=== PATIENT | female | born 1985 | race African-American/Black ===

== ENCOUNTER 2016-07-16 10:28 | Emergency (ER) | payer SELFPAY ==
--- NOTE | 2016-07-16 10:41 | ER Document Report ---
ED Medical Screen (RME) - General Chief Complaint: Headache Stated Complaint: HEAD PAIN Mode of Arrival: Ambulatory Information source: Patient Notes: 30-year-old female presents to the emergency department complaining of headache , dizziness, generalized body aches, and intermittent fever over the last 4 days. I have greeted and performed a rapid initial assessment of this patient. A comprehensive ED assessment and evaluation of the patient, analysis of test results and completion of the medical decision making process will be conducted by additional ED providers. TRAVEL OUTSIDE OF THE [place] IN LAST 30 DAYS: No - Related Data Allergies/Adverse Reactions: No Known Allergies Allergy (Verified 04/03/16 15:18) Past Medical History - Social History Chew tobacco use (# tins/day): No Frequency of alcohol use: None Drug Abuse: None Pulmonary Medical History: Reports: Hx Asthma Renal/ Medical History: Denies: Hx Peritoneal Dialysis - Immunizations Immunizations up to date: Yes Hx Diphtheria, Pertussis, Tetanus Vaccination: Yes Physical Exam - Vital signs Vitals: Temp Pulse Resp BP Pulse Ox 98.9 F 117 H 16 116/91 H 99 07/16/16 10:33 07/16/16 10:33 07/16/16 10:33 07/16/16 10:33 07/16/16 10:33 Interpretation: Tachycardic - General General appearance: Alert In distress: None - Respiratory Respiratory status: No respiratory distress Breath sounds: Normal Course - Vital Signs Vital signs: Temp Pulse Resp BP Pulse Ox 98.9 F 117 H 16 116/91 H 99 07/16/16 10:33 07/16/16 10:33 07/16/16 10:33 07/16/16 10:33 07/16/16 10:33
[2016-07-16] MEDS ORDERED: NORMAL SALINE 1000 ML 1,000 ML IV ONE (12:37)
[2016-07-16] MEDS ORDERED: KETOROLAC TROMETHAMINE INJ/PF 30 MG/1 ML SDV IV ONE (12:38)
[2016-07-16] MEDS ORDERED: ONDANSETRON HCL INJ/PF 4 MG/2 ML SDV IV ONE (12:38)
--- NOTE | 2016-07-16 12:38 | ER Document Report ---
ED Flu Like - General Mode of Arrival: Ambulatory Information source: Patient TRAVEL OUTSIDE OF THE [place] IN LAST 30 DAYS: No - HPI Onset: Other - x4 days Timing/Duration: Persistent Quality of pain: Achy Severity: None - General Chief Complaint: Headache Stated Complaint: HEAD PAIN Notes: Patient is a 30-year-old female that presents to the emergency department today with complaints of flu-like symptoms including a fever, headache, and body aches with chest pain. Patient has a history of the sickle cell trait. Patient states all of her symptoms began 4 days ago. (ASHLIE SHOEMAKER) - Related Data Allergies/Adverse Reactions: No Known Allergies Allergy (Verified 04/03/16 15:18) Past Medical History - General Information source: Patient - Social History Smoking Status: Never Smoker Cigarette use (# per day): No Chew tobacco use (# tins/day): No Frequency of alcohol use: None Drug Abuse: None Lives with: Family Family History: Reviewed & Not Pertinent Patient has suicidal ideation: No Patient has homicidal ideation: No Pulmonary Medical History: Reports: Hx Asthma Surgical Hx: Negative - Immunizations Immunizations up to date: Yes Hx Diphtheria, Pertussis, Tetanus Vaccination: Yes Review of Systems - Review of Systems Constitutional: See HPI, Fever EENT: See HPI, Nose congestion Cardiovascular: No symptoms reported Respiratory: No symptoms reported Gastrointestinal: No symptoms reported Genitourinary: No symptoms reported Female Genitourinary: No symptoms reported Musculoskeletal: See HPI, Joint pain - generalized body aches Skin: No symptoms reported Hematologic/Lymphatic: No symptoms reported Neurological/Psychological: See HPI, Headaches -: Yes All other systems reviewed and negative Physical Exam - Vital signs Interpretation: Tachycardic - General General appearance: Alert, Other - appears uncomfortable - HEENT Head: Normocephalic, Atraumatic Eyes: Normal Conjunctiva: Normal Extraocular movements intact: Yes Nasal: Other - nasal congestion - Respiratory Respiratory status: No respiratory distress Chest status: Nontender Breath sounds: Normal - Cardiovascular Rhythm: Regular, Tachycardia Heart sounds: Normal auscultation Murmur: No - Abdominal Inspection: Normal Distension: No distension - Extremities General upper extremity: Normal inspection, Normal ROM. No: Edema General lower extremity: Normal inspection, Normal ROM. No: Edema - Neurological Neuro grossly intact: Yes Cognition: Normal Orientation: AAOx4 Speech: Normal - Psychological Associated symptoms: Normal affect, Normal mood - Skin Skin Temperature: Warm Skin Moisture: Dry Skin Color: Normal Course - Re-evaluation Re-evalutation: 07/16/16 18:38 Patient with upper respiratory symptoms and headache. She has not been staying hydrated that she has not felt well for the last few days. Positive for influenza A. No evidence for pneumonia. AVSS. Patient has been given fluids, Toradol, and Zofran for headache. Feels better. Stable for discharge home. Follow-up with PMD. Return if any worsening or concerning symptoms. (MARK CLAIRE) - Vital Signs Vital signs: Temp Pulse Resp BP Pulse Ox 97.8 F 100 16 121/76 100 07/16/16 14:36 07/16/16 14:36 07/16/16 10:33 07/16/16 14:36 07/16/16 14:36 (ASHLIE SHOEMAKER) (MARK CLAIRE) Discharge - Discharge Clinical Impression: Influenza A Headache Qualifiers: Headache type: tension-type Headache chronicity pattern: unspecified pattern Intractability: not intractable Qualified Code(s): G44.209 - Tension-type headache, unspecified, not intractable Condition: Stable Disposition: HOME, SELF-CARE Instructions: Influenza ([facility]), Headache ([facility]) Additional Instructions: Please follow-up with your doctor within 3-5 days. Forms: Return to Work Scribe Attestation: 07/16/16 18:38 I personally performed the services described in the documentation, reviewed and edited the documentation which was dictated to the scribe in my presence, and it accurately records my words and actions. (MARK CLAIRE) Scribe Documentation - Scribe Written by Brii:: Brii Garcia, [id number] 07/16/16 acting as scribe for :: Jeanna
[2016-07-16 14:40] VITALS: BP 121/76
== END 2016-07-16 14:40 | disposition home or self-care (01) ==
LOC: ER 10:28
DX: G44.209 Tension-type headache, unspecified, not intractable (principal); J11.1 Influenza due to unidentified influenza virus with other respiratory manifestations; R50.9 Fever, unspecified; R07.9 Chest pain, unspecified; R09.81 Nasal congestion; R00.0 Tachycardia, unspecified; M25.50 Pain in unspecified joint; D57.3 Sickle-cell trait
CPT/HCPCS: 99283; 96361; 96374; 96375; 87804; J1885; J2405; J7030

== ENCOUNTER 2016-10-11 17:00 | Emergency (ER) | payer SELFPAY ==
--- NOTE | 2016-10-11 19:05 | ER Document Report ---
ED Medical Screen (RME) - General Chief Complaint: Abscess Stated Complaint: POSSIBLE ABCESS Time Seen by Provider: 10/11/16 19:02 Notes: Patient is a 30-year-old female, past medical history asthma, sickle cell trait , presents with several days of swelling on the left side of her labia. She has never had this before. PE: NAD. RRR. ATKINS. I have greeted and performed a rapid initial assessment of this patient. A comprehensive ED assessment and evaluation of the patient, analysis of test results and completion of the medical decision making process will be conducted by additional ED providers. TRAVEL OUTSIDE OF THE [place] IN LAST 30 DAYS: No - Related Data Allergies/Adverse Reactions: No Known Allergies Allergy (Verified 10/11/16 17:52) Past Medical History Pulmonary Medical History: Reports: Hx Asthma Renal/ Medical History: Denies: Hx Peritoneal Dialysis - Immunizations Immunizations up to date: Yes Hx Diphtheria, Pertussis, Tetanus Vaccination: Yes Physical Exam - Vital signs Vitals: Temp Pulse Resp BP Pulse Ox 97.8 F 83 16 146/54 H 100 10/11/16 17:52 10/11/16 17:52 10/11/16 17:52 10/11/16 17:52 10/11/16 17:52 Course - Vital Signs Vital signs: Temp Pulse Resp BP Pulse Ox 97.8 F 83 16 146/54 H 100 10/11/16 17:52 10/11/16 17:52 10/11/16 17:52 10/11/16 17:52 10/11/16 17:52
[2016-10-11] MEDS ORDERED: SULFAMETHOXAZOLE/TRIMETHOPRIM 800-160 MG TABLET PO ONE (19:35)
[2016-10-11] MEDS ORDERED: HYDROCODONE/ACETAMINOPHEN 5-325 MG 6 TAB/DSPK PO PRN (19:35)
--- NOTE | 2016-10-11 19:43 | ER Document Report ---
ED Skin Rash/Insect Bite/Abscs - General Chief Complaint: Abscess Stated Complaint: POSSIBLE ABCESS Time Seen by Provider: 10/11/16 19:02 Mode of Arrival: Ambulatory Information source: Patient TRAVEL OUTSIDE OF THE [place] IN LAST 30 DAYS: No - HPI Patient complains to provider of: Tender/swollen area Onset: Last week Onset/Duration: Gradual, Persistent Quality of pain: Achy, Pressure Severity: Moderate Pain Level: 3 Skin Character: Tenderness Quality of rash: Painful Identify cause: No Similar symptoms previously: No Recently seen / treated by doctor: No Notes: Patient is a 30-year-old female who presents to the emergency room complaining of tender swelling to left labia, she reports that she felt a lump in this area for at least the past 2-3 years, and only over the past week it has become tender and painful, she denies any injury, no drainage, no fevers, no nausea, vomiting or diarrhea, no dysuria or hematuria - Related Data Allergies/Adverse Reactions: No Known Allergies Allergy (Verified 10/11/16 17:52) Past Medical History - General Information source: Patient - Social History Smoking Status: Never Smoker Family History: Reviewed & Not Pertinent Patient has suicidal ideation: No Patient has homicidal ideation: No Pulmonary Medical History: Reports: Hx Asthma Renal/ Medical History: Denies: Hx Peritoneal Dialysis - Immunizations Immunizations up to date: Yes Hx Diphtheria, Pertussis, Tetanus Vaccination: Yes Review of Systems - Review of Systems Constitutional: No symptoms reported EENT: No symptoms reported Cardiovascular: No symptoms reported Respiratory: No symptoms reported Gastrointestinal: No symptoms reported Genitourinary: No symptoms reported Female Genitourinary: See HPI Musculoskeletal: No symptoms reported Skin: No symptoms reported Hematologic/Lymphatic: No symptoms reported Neurological/Psychological: No symptoms reported -: Yes All other systems reviewed and negative Physical Exam - Vital signs Vitals: Temp Pulse Resp BP Pulse Ox 97.8 F 83 16 146/54 H 100 10/11/16 17:52 10/11/16 17:52 10/11/16 17:52 10/11/16 17:52 10/11/16 17:52 - Notes Notes: - General General appearance: Appears well, Alert In distress: None - HEENT Head: Normocephalic, Atraumatic Eyes: Normal Conjunctiva: Normal Extraocular movements intact: Yes Eyelashes: Normal Pupils: PERRL - Respiratory Respiratory status: No respiratory distress - Cardiovascular Rhythm: Regular - Abdominal Inspection: Normal - Back Back: Normal - Extremities General upper extremity: Normal inspection General lower extremity: Normal inspection - Neurological Neuro grossly intact: Yes Orientation: AAOx4 [place] Coma Scale Eye Opening: Spontaneous [place] Coma Scale Verbal: Oriented [place] Coma Scale Motor: Obeys Commands Gerson Coma Scale Total: 15 - Psychological Associated symptoms: Normal affect, Normal mood - Skin Skin Temperature: Warm Skin Moisture: Dry Skin Color: Normal - Genitourinary External exam: Normal, Other - There is a pea-sized nodule in the left labia which is tender to palpate, there is no erythema, no fluctuance, no swelling Course - Re-evaluation Re-evalutation: 10/11/16 20:22 30-year-old female with a pea-sized nodule in the left labia, likely swollen glands, there is no fluctuance, no erythema, no swelling to the labia, however patient was placed on antibiotics and provided with pain medication for treatment of the possible early Bartholin abscess, patient was provided with information for follow-up and advised to return if symptoms worsen, patient acknowledges understanding and agreement with this plan - Vital Signs Vital signs: Temp Pulse Resp BP Pulse Ox 98.4 F 79 18 134/81 H 97 10/11/16 19:48 10/11/16 19:48 10/11/16 19:48 10/11/16 19:48 10/11/16 19:48 Discharge - Discharge Clinical Impression: Folliculitis Condition: Stable Disposition: HOME, SELF-CARE Instructions: Folliculitis ([facility]), Trimethoprim-Sulfa ([facility]), Oral Narcotic Medication ([facility]), [employer] [facility] Additional Instructions: Follow up with your primary care provider [employer] in one to 2 days. Return to the emergency room immediately if symptoms worsen or any additional concerns. Prescriptions: Hydrocodone/Acetaminophen [Hydrocodon-Acetaminophen 5-325] 1 each PO Q6 #20 tablet Sulfamethoxazole/Trimethoprim [Bactrim Ds Tablet] 1 each PO BID #20 tablet
[2016-10-11 19:50] VITALS: BP 134/81
== END 2016-10-11 20:00 | disposition home or self-care (01) ==
LOC: ER 17:00
DX: L73.9 Follicular disorder, unspecified (principal); N76.4 Abscess of vulva
CPT/HCPCS: 99282

== ENCOUNTER 2017-04-19 17:17 | Emergency (ER) | payer SELFPAY ==
[2017-04-19] MEDS ORDERED: IBUPROFEN 800 MG TABLET PO ONE (18:56)
--- NOTE | 2017-04-19 19:44 | RADIOLOGY REPORT (SQ) ---
EXAM DESCRIPTION: KNEE LEFT 4 VIEW COMPLETED DATE/TIME: 04/19/2017 7:32 pm REASON FOR STUDY: pain for a week COMPARISON: None. NUMBER OF VIEWS: Four views. TECHNIQUE: AP, lateral, and both oblique radiographic images acquired of the left knee. LIMITATIONS: None. FINDINGS: MINERALIZATION: Normal. BONES: No acute fracture or dislocation. No worrisome bone lesions. JOINT: No effusion. SOFT TISSUES: No soft tissue swelling. No radio-opaque foreign body. OTHER: No other significant finding. IMPRESSION: NEGATIVE STUDY OF THE LEFT KNEE. NO RADIOGRAPHIC EVIDENCE OF ACUTE INJURY. TECHNICAL DOCUMENTATION: JOB ID: [id number] [employer]- All Rights Reserved
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
[2017-04-19 21:08] VITALS: BP 117/73
== END 2017-04-19 21:08 | disposition home or self-care (01) ==
LOC: ER 17:17
DX: M25.562 Pain in left knee (principal); Z79.899 Other long term (current) drug therapy
CPT/HCPCS: 99283

== ENCOUNTER 2017-05-03 08:12 | Emergency (ER) | payer SELFPAY ==
[2017-05-03] MEDS ORDERED: NORMAL SALINE 1000 ML 1,000 ML IV ONE (08:32)
[2017-05-03] MEDS ORDERED: HYDROMORPHONE HCL INJ/PF 2 MG/ML AMPULE IV ONE (08:33)
--- NOTE | 2017-05-03 08:49 | ER Document Report ---
ED General Pain - General Chief Complaint: Pain All Over Stated Complaint: BACK AND LEG PAIN Time Seen by Provider: 05/03/17 08:19 Mode of Arrival: Wheelchair Information source: Patient Notes: Patient presents complaining of generalized joint and muscle pain for the past week. Patient denies any cough, cold symptoms, nausea or vomiting. Patient denies any fever. Patient states she does have sickle cell trait and at least once a year she will have body pain symptoms similar to this. Patient denies any abdominal pain or chest pain. TRAVEL OUTSIDE OF THE [place] IN LAST 30 DAYS: No - HPI Onset: Last week Onset/Duration: Persistent Quality of pain: Achy Pain Level: 5 Associated symptoms: Muscle aches Exacerbated by: Movement Relieved by: Denies Similar symptoms previously: Yes Recently seen / treated by doctor: Yes - Related Data Allergies/Adverse Reactions: No Known Allergies Allergy (Verified 05/03/17 08:13) Past Medical History - General Information source: Patient - Social History Smoking Status: Never Smoker Frequency of alcohol use: None Drug Abuse: None Occupation: None Lives with: Family Family History: Reviewed & Not Pertinent Patient has suicidal ideation: No Patient has homicidal ideation: No - Medical History Medical History: Other - Sickle cell trait Pulmonary Medical History: Reports: Hx Asthma Renal/ Medical History: Denies: Hx Peritoneal Dialysis Surgical Hx: Negative - Immunizations Immunizations up to date: Yes Hx Diphtheria, Pertussis, Tetanus Vaccination: Yes Review of Systems - Review of Systems Constitutional: No symptoms reported. denies: Fever, Recent illness EENT: No symptoms reported Cardiovascular: No symptoms reported. denies: Chest pain Respiratory: No symptoms reported. denies: Cough, Short of breath Gastrointestinal: No symptoms reported. denies: Abdominal pain, Diarrhea, Nausea, Vomiting Genitourinary: No symptoms reported. denies: Dysuria Female Genitourinary: No symptoms reported Musculoskeletal: Back pain, Joint pain, Muscle pain. denies: Joint swelling Skin: No symptoms reported Hematologic/Lymphatic: No symptoms reported Neurological/Psychological: No symptoms reported. denies: Headaches Physical Exam - Vital signs Vitals: Temp Pulse Resp BP Pulse Ox 98.9 F 92 20 130/71 H 97 05/03/17 08:20 05/03/17 08:20 05/03/17 08:20 05/03/17 08:20 05/03/17 08:20 - General General appearance: Alert In distress: None Notes: tearful - HEENT Head: Normocephalic Eyes: Normal Nasal: Normal Mouth/Lips: Normal Mucous membranes: Normal Pharynx: Normal Neck: Normal, Supple. No: Lymphadenopathy, Meningismus - Respiratory Respiratory status: No respiratory distress Chest status: Nontender Breath sounds: Normal. No: Rales, Rhonchi, Stridor, Wheezing Chest palpation: Normal - Cardiovascular Rhythm: Regular Heart sounds: S1 appreciated, S2 appreciated Murmur: No - Abdominal Inspection: Normal Distension: No distension Bowel sounds: Normal Tenderness: Nontender Organomegaly: No organomegaly - Back Back: Tender - Lumbar paraspinal tenderness, CVA tenderness - bilat - Extremities General upper extremity: Normal inspection, Tender - Diffuse tenderness to joints as well as muscles of bilateral upper extremities, Normal color, Normal ROM, Normal strength, Normal temperature. No: Edema General lower extremity: Normal inspection, Tender - Diffuse tenderness to bilateral lower extremity muscle and joints, Normal color, Normal ROM, Normal strength, Normal temperature, Normal weight bearing. No: Edema - Neurological Neuro grossly intact: Yes Cognition: Normal [place] Coma Scale Eye Opening: Spontaneous [place] Coma Scale Verbal: Oriented [place] Coma Scale Motor: Obeys Commands [place] Coma Scale Total: 15 - Psychological Associated symptoms: Tearful - Skin Skin Temperature: Warm Skin Moisture: Dry Skin Color: Normal Course - Re-evaluation Re-evalutation: 05/03/17 09:40 pt reports that pain has improved. Pt visibly more comfortable. 05/03/17 11:34 Patient reports that pain is better and feels that she can manage her symptoms at home. Consulted with Dr. Morrison regarding patient presentation, reviewed her diagnostic tests. Agrees with discharge plan - Vital Signs Vital signs: Temp Pulse Resp BP Pulse Ox 98.9 F 92 20 137/95 H 97 05/03/17 08:20 05/03/17 08:20 05/03/17 08:20 05/03/17 11:36 05/03/17 09:52 - Laboratory Result Diagrams: 05/03/17 08:55 05/03/17 08:55 Laboratory results interpreted by me: 05/03/17 05/03/17 05/03/17 08:55 08:55 10:10 WBC 11.3 H Chloride 109 H Carbon Dioxide 21 L Direct Bilirubin 0.5 H Creatine Kinase 211 H Ur Leukocyte Esterase TRACE H Urine Ascorbic Acid 20 H Labs- Entire Visit 05/03/17 05/03/17 05/03/17 08:55 08:55 08:55 WBC 11.3 H RBC 4.62 Hgb 13.4 Hct 38.4 MCV 83 MCH 29.0 MCHC 34.9 RDW 13.6 Plt Count 282 Seg Neutrophils % 65.2 Lymphocytes % 23.5 Monocytes % 10.6 Eosinophils % 0.4 Basophils % 0.3 Absolute Neutrophils 7.4 Absolute Lymphocytes 2.7 Absolute Monocytes 1.2 Absolute Eosinophils 0.0 Absolute Basophils 0.0 Retic Count (auto) 1.74 Absolute Retic 0.081 Sodium 143.0 Potassium 4.2 Chloride 109 H Carbon Dioxide 21 L Anion Gap 13 BUN 8 Creatinine 0.67 Est GFR ( Amer) > 60 Est GFR (Non-Af Amer) > 60 Glucose 90 Calcium 9.2 Total Bilirubin 1.0 Direct Bilirubin 0.5 H Neonat Total Bilirubin Not Reportable Neonat Direct Bilirubin Not Reportable Neonat Indirect Bili Not Reportable AST 33 ALT 30 Alkaline Phosphatase 53 Creatine Kinase 211 H Total Protein 7.2 Albumin 4.1 Serum HCG, Qual NEGATIVE Urine Color Urine Appearance Urine pH Ur Specific [place] Urine Protein Urine Glucose (UA) Urine Ketones Urine Blood Urine Nitrite Urine Bilirubin Urine Urobilinogen Ur Leukocyte Esterase Urine WBC (Auto) Urine RBC (Auto) Squamous Epi Cells Auto Urine Mucus (Auto) Urine Ascorbic Acid 05/03/17 10:10 WBC RBC Hgb Hct MCV MCH MCHC RDW Plt Count Seg Neutrophils % Lymphocytes % Monocytes % Eosinophils % Basophils % Absolute Neutrophils Absolute Lymphocytes Absolute Monocytes Absolute Eosinophils Absolute Basophils Retic Count (auto) Absolute Retic Sodium Potassium Chloride Carbon Dioxide Anion Gap BUN Creatinine Est GFR ( Amer) Est GFR (Non-Af Amer) Glucose Calcium Total Bilirubin Direct Bilirubin Neonat Total Bilirubin Neonat Direct Bilirubin Neonat Indirect Bili AST ALT Alkaline Phosphatase Creatine Kinase Total Protein Albumin Serum HCG, Qual Urine Color YELLOW Urine Appearance SLIGHTLY-CLOUDY Urine pH 5.0 Ur Specific [place] 1.011 Urine Protein NEGATIVE Urine Glucose (UA) NEGATIVE Urine Ketones NEGATIVE Urine Blood NEGATIVE Urine Nitrite NEGATIVE Urine Bilirubin NEGATIVE Urine Urobilinogen NEGATIVE Ur Leukocyte Esterase TRACE H Urine WBC (Auto) 2 Urine RBC (Auto) 2 Squamous Epi Cells Auto 7 Urine Mucus (Auto) MANY Urine Ascorbic Acid 20 H Discharge - Discharge Clinical Impression: Myalgia Arthralgia Qualifiers: Joint pain location: unspecified Qualified Code(s): M25.50 - Pain in unspecified joint Condition: Stable Disposition: HOME, SELF-CARE Instructions: Arthralgia ([facility]), Myalagia (Muscle Pain) ([facility]), Oral Narcotic Medication ([facility]) Additional Instructions: Return immediately for any new or worsening symptoms Followup with your primary care provider, call tomorrow to make a followup appointment Prescriptions: Hydrocodone/Acetaminophen [Gould 5-325 Tablet] 1 each PO Q4 PRN #8 tablet PRN Reason: Naproxen [Naprosyn 250 Nmg Tablet] 1 tab PO BID #14 tablet Referrals: [facility] [Provider Group] - Follow up tomorrow
[2017-05-03 09:18] LABS: ABSOLUTE LYMPHOCYTES (AUTO) 2.7 10^3/uL (0.5-4.7); ABSOLUTE MONOCYTES (AUTO) 1.2 10^3/uL (0.1-1.4); ABSOLUTE NEUT (AUTO) 7.4 10^3/uL (1.7-8.2); BASOPHILS % (AUTO) 0.3 % (0-2); EOSINOPHILS % (AUTO) 0.4 % (0-6); HEMATOCRIT 38.4 % (36.0-47.0); HEMOGLOBIN 13.4 g/dL (12.0-15.5); HGB HCT DIFFERENCE 1.8; LYMPHOCYTES % (AUTO) 23.5 % (13-45); MEAN CORPUSCULAR HGB CONC 34.9 g/dL (32.0-36.0); MEAN CORPUSCULAR VOLUME 83 fl (80-97); MONOCYTES % (AUTO) 10.6 % (3-13); RED BLOOD COUNT 4.62 10^6/uL (3.72-5.28); RED CELL DISTRIBUTION WIDTH 13.6 % (11.5-14.0); SEGMENTED NEUTROPHILS % (AUTO) 65.2 % (42-78); WHITE BLOOD COUNT 11.3 10^3/uL (4.0-10.5)
[2017-05-03 09:42] LABS: STAIN REACTIVITY CHECK ACCEPTABLE
[2017-05-03] MEDS ORDERED: NORMAL SALINE 1000 ML 1,000 ML IV PRN (09:43)
[2017-05-03 09:46] LABS: ALANINE AMINOTRANSFERASE 30 U/L (9-52); ALBUMIN 4.1 g/dL (3.5-5.0); ALKALINE PHOSPHATASE 53 U/L (38-126); ANION GAP 13 (5-19); ASPARTATE AMINO TRANSFERASE 33 U/L (14-36); BILIRUBIN,DIRECT 0.5 mg/dL (0.0-0.4); BLOOD UREA NITROGEN 8 mg/dL (7-20); CALCIUM 9.2 mg/dL (8.4-10.2); CARBON DIOXIDE 21 mmol/L (22-30); CHLORIDE 109 mmol/L (98-107); CREATINE KINASE 211 U/L (30-135); CREATININE RESULT 0.67 mg/dL (0.52-1.25); GLUCOSE 90 mg/dL (75-110); POTASSIUM 4.2 mmol/L (3.6-5.0); TOTAL PROTEIN 7.2 g/dL (6.3-8.2)
[2017-05-03 10:53] LABS: APPEARANCE,URINE SLIGHTLY-CLOUDY; BILIRUBIN,URINE NEGATIVE (NEGATIVE); GLUCOSE, URINE NEGATIVE (NEGATIVE); KETONES,URINE NEGATIVE (NEGATIVE); LEUKOCYTE ESTERASE,URINE TRACE (NEGATIVE); NITRITE,URINE NEGATIVE (NEGATIVE); PROTEIN,URINE NEGATIVE (NEGATIVE); URINE SPECIFIC GRAVITY 1.011; UROBILINOGEN,URINE NEGATIVE mg/dL (<2.0)
[2017-05-03 11:39] VITALS: BP 137/95
== END 2017-05-03 12:00 | disposition home or self-care (01) ==
LOC: ER 08:12
DX: M79.1 Myalgia (principal); M25.50 Pain in unspecified joint; M54.9 Dorsalgia, unspecified; D57.3 Sickle-cell trait
CPT/HCPCS: 99283; 96361; 96374; 36415; 82550; 84703; 85025; 85045; 80053; 81001; J1170; J7030

== ENCOUNTER 2017-05-09 10:30 | Emergency (ER) | payer SELFPAY ==
[2017-05-09] MEDS ORDERED: NORMAL SALINE 1000 ML 1,000 ML IV PRN (11:14)
[2017-05-09] MEDS ORDERED: MORPHINE SULFATE 10 MG/ML INJ IV ONE (11:15)
[2017-05-09] MEDS ORDERED: ONDANSETRON HCL INJ/PF 4 MG/2 ML SDV IV ONE (11:16)
[2017-05-09 12:06] LABS: ABSOLUTE BASOPHILS # (AUTO) 0.1 10^3/uL (0.0-0.2); ABSOLUTE EOSINOPHILS # (AUTO) 0.1 10^3/uL (0.0-0.6); ABSOLUTE LYMPHOCYTES (AUTO) 2.2 10^3/uL (0.5-4.7); ABSOLUTE MONOCYTES (AUTO) 0.9 10^3/uL (0.1-1.4); ABSOLUTE NEUT (AUTO) 3.6 10^3/uL (1.7-8.2); BASOPHILS % (AUTO) 0.8 % (0-2); EOSINOPHILS % (AUTO) 1.5 % (0-6); HEMATOCRIT 39.1 % (36.0-47.0); HEMOGLOBIN 13.6 g/dL (12.0-15.5); HGB HCT DIFFERENCE 1.7; LYMPHOCYTES % (AUTO) 32.6 % (13-45); MEAN CORPUSCULAR HEMOGLOBIN 29.3 pg (27.0-33.4); MEAN CORPUSCULAR HGB CONC 34.8 g/dL (32.0-36.0); MEAN CORPUSCULAR VOLUME 84 fl (80-97); MONOCYTES % (AUTO) 12.9 % (3-13); RED BLOOD COUNT 4.65 10^6/uL (3.72-5.28); RED CELL DISTRIBUTION WIDTH 13.5 % (11.5-14.0); SEGMENTED NEUTROPHILS % (AUTO) 52.2 % (42-78); WHITE BLOOD COUNT 6.9 10^3/uL (4.0-10.5)
[2017-05-09 12:28] LABS: ALANINE AMINOTRANSFERASE 31 U/L (9-52); ALBUMIN 3.8 g/dL (3.5-5.0); ALKALINE PHOSPHATASE 43 U/L (38-126); ANION GAP 9 (5-19); ASPARTATE AMINO TRANSFERASE 23 U/L (14-36); BILIRUBIN,DIRECT 0.2 mg/dL (0.0-0.4); BILIRUBIN,TOTAL 0.8 mg/dL (0.2-1.3); BLOOD UREA NITROGEN 8 mg/dL (7-20); C-REACTIVE PROTEIN 12.1 mg/L (<10.0); CALCIUM 9.3 mg/dL (8.4-10.2); CARBON DIOXIDE 27 mmol/L (22-30); CHLORIDE 105 mmol/L (98-107); CREATININE RESULT 0.68 mg/dL (0.52-1.25); GLUCOSE 98 mg/dL (75-110); POTASSIUM 3.6 mmol/L (3.6-5.0); SODIUM 140.8 mmol/L (137-145); TOTAL PROTEIN 6.7 g/dL (6.3-8.2); URIC ACID 4.9 mg/dL (2.5-6.2)
--- NOTE | 2017-05-09 12:37 | RADIOLOGY REPORT (SQ) ---
EXAM DESCRIPTION: CHEST SINGLE VIEW COMPLETED DATE/TIME: 05/09/2017 12:17 pm REASON FOR STUDY: chest pain COMPARISON: Chest films 04/08/2016 EXAM PARAMETERS: NUMBER OF VIEWS: One view. TECHNIQUE: Single frontal radiographic view of the chest acquired. RADIATION DOSE: NA LIMITATIONS: None. FINDINGS: LUNGS AND PLEURA: No opacities, masses or pneumothorax. No pleural effusion. MEDIASTINUM AND HILAR STRUCTURES: No masses. Contour normal. HEART AND VASCULAR STRUCTURES: Heart normal in size. Normal vasculature. BONES: No acute findings. HARDWARE: None in the chest. OTHER: No other significant finding. IMPRESSION: NO ACUTE RADIOGRAPHIC FINDING IN THE CHEST. TECHNICAL DOCUMENTATION: JOB ID: [id number] [employer]- All Rights Reserved
--- NOTE | 2017-05-09 12:38 | RADIOLOGY REPORT (SQ) ---
EXAM DESCRIPTION: KNEE LEFT 4 VIEW COMPLETED DATE/TIME: 05/09/2017 12:17 pm REASON FOR STUDY: left knee pain COMPARISON: Left knee four views 04/19/2017 NUMBER OF VIEWS: Four views. TECHNIQUE: AP, lateral, and both oblique radiographic images acquired of the left knee. LIMITATIONS: None. FINDINGS: MINERALIZATION: Normal. BONES: No acute fracture or dislocation. No worrisome bone lesions. JOINT: No effusion. SOFT TISSUES: No soft tissue swelling. No radio-opaque foreign body. OTHER: No other significant finding. IMPRESSION: NEGATIVE STUDY OF THE LEFT KNEE. NO RADIOGRAPHIC EVIDENCE OF ACUTE INJURY. TECHNICAL DOCUMENTATION: JOB ID: [id number] [employer]- All Rights Reserved
[2017-05-09 12:46] LABS: ERYTHROCYTE SEDIMENTATION RATE 12 mm/hr (0-20)
--- NOTE | 2017-05-09 13:34 | RADIOLOGY REPORT (SQ) ---
EXAM DESCRIPTION: MRI LT LOWER JOINT WITHOUT COMPLETED DATE/TIME: 05/09/2017 1:22 pm REASON FOR STUDY: left knee pain COMPARISON: Plain films 05/09/2017, 04/19/2017 TECHNIQUE: Leftknee images acquired and stored on PACS. Multiplanar images include fat sensitive se quences as T1, water sensitive sequences as FST2 or STIR, cartilage sensitive sequences as FSPD, and gradient echo sequences. LIMITATIONS: None. FINDINGS: JOINT AND BURSAE: No effusion. BONE CORTEX AND MARROW: No alteration of signal to suggest marrow replacement. No worrisome bone lesi ons. No occult fracture. ACL: Intact. No degeneration or ganglion cyst. PCL: Intact. MCL: Intact. No periligamentous edema or fluid. LCL: Intact. No periligamentous edema or fluid. MEDIAL MENISCUS: No tears. No abnormal signal. LATERAL MENISCUS: No tears. No abnormal signal. MEDIAL COMPARTMENT: Mild chondromalacia. No bone bruises or reactive marrow edema. No osteophytes. LATERAL COMPARTMENT: Cartilage preserved. No bone bruises or reactive marrow edema. No osteophytes. PATELLA: Mild medial patellar facet chondromalacia. No subchondral cysts. Medial and lateral retinacu la intact. EXTENSOR MECHANISM: Intact. Quadriceps and patella tendons normal. SOFT TISSUES: Adjacent muscles and subcutaneous tissues normal. Normal flow void in popliteal artery and vein. OTHER: No other significant finding. 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 OTHERWISE, NORMAL MRI OF THE KNEE. TECHNICAL DOCUMENTATION: JOB ID: [id number] [email or web address]- All Rights Reserved
[2017-05-09] MEDS ORDERED: METHYLPREDNISOLONE INJ 125 MG/2 ML SDV IV ONE (14:52)
[2017-05-09 14:59] LABS: APPEARANCE,URINE CLEAR; BILIRUBIN,URINE NEGATIVE (NEGATIVE); GLUCOSE, URINE NEGATIVE (NEGATIVE); KETONES,URINE NEGATIVE (NEGATIVE); LEUKOCYTE ESTERASE,URINE NEGATIVE (NEGATIVE); NITRITE,URINE NEGATIVE (NEGATIVE); PROTEIN,URINE NEGATIVE (NEGATIVE); URINE SPECIFIC GRAVITY 1.005; UROBILINOGEN,URINE NEGATIVE mg/dL (<2.0)
--- NOTE | 2017-05-09 16:33 | ER Document Report ---
ED General - General Chief Complaint: Feet Swelling Stated Complaint: KNEE PAIN Time Seen by Provider: 05/09/17 10:56 Mode of Arrival: Ambulatory Information source: Patient Notes: This is a 31-year-old female with a history of sickle cell trait that presents to the emergency room with recurrent left knee pain for the past week. Patient does report she has had intermittent joint pain of both knees and the toes but that the left knee is been worse for the past week. She states it is hard to move and bend the knee. She denies fever but states she has had some chills. TRAVEL OUTSIDE OF THE [place] IN LAST 30 DAYS: No - HPI Onset: Last week Onset/Duration: Gradual Quality of pain: Dull Severity: Moderate Pain Level: 3 Associated symptoms: Chills. denies: Fever, Shortness of breath Exacerbated by: Movement Relieved by: Denies Similar symptoms previously: Yes Recently seen / treated by doctor: Yes - Related Data Allergies/Adverse Reactions: No Known Allergies Allergy (Verified 05/09/17 10:31) Home Medications: Current Home Medications Hydrocodone/Acetaminophen [Lane 5-325 Tablet] 1 each PO Q4HP PRN 05/09/17 [ History] Naproxen [Naprosyn 250 Nmg Tablet] 250 mg PO Q12 05/09/17 [History] Past Medical History - General Information source: Patient - Social History Smoking Status: Never Smoker Cigarette use (# per day): No Chew tobacco use (# tins/day): No Frequency of alcohol use: None Drug Abuse: None Lives with: Family Family History: Reviewed & Not Pertinent Patient has suicidal ideation: No Patient has homicidal ideation: No - Past Medical History Cardiac Medical History: Reports: None Pulmonary Medical History: Reports: Hx Asthma Neurological Medical History: Reports: None Endocrine Medical History: Reports: None Renal/ Medical History: Denies: Hx Peritoneal Dialysis Malignancy Medical History: Reports: None GI Medical History: Reports: None Musculoskeltal Medical History: Reports Hx Arthritis, Reports Other - The patient does have a history of arthralgias to the knees and toes Skin Medical History: Reports None Psychiatric Medical History: Reports: None Traumatic Medical History: Reports: None Infectious Medical History: Reports: None Surgical Hx: Negative - Immunizations Immunizations up to date: Yes Hx Diphtheria, Pertussis, Tetanus Vaccination: Yes Review of Systems - Review of Systems Constitutional: Chills. denies: Fever EENT: No symptoms reported Cardiovascular: No symptoms reported Respiratory: No symptoms reported Gastrointestinal: No symptoms reported Genitourinary: No symptoms reported Female Genitourinary: No symptoms reported Musculoskeletal: See HPI Skin: See HPI Hematologic/Lymphatic: No symptoms reported Neurological/Psychological: No symptoms reported Physical Exam - Vital signs Vitals: Temp Pulse Resp BP Pulse Ox 98.1 F 88 22 H 127/77 H 99 05/09/17 10:36 05/09/17 10:36 05/09/17 10:36 05/09/17 10:36 05/09/17 10:36 Notes: Physical exam: GENERAL: 31-year-old female, alert and oriented 3, complaining of left knee pain. She is afebrile with stable vital signs. HEAD: Atraumatic, normocephalic. EYES: Pupils equal round and reactive to light, extraocular movements intact, sclera anicteric, conjunctiva are normal. ENT: TMs normal, nares patent, oropharynx clear without exudates. Moist mucous membranes. NECK: Normal range of motion, supple without obvious mass or JVD. LUNGS: Breath sounds clear to auscultation bilaterally and equal. No wheezes rales or rhonchi. HEART: Regular rate and rhythm without murmurs, rubs or gallops. ABDOMEN: Soft, normoactive bowel sounds. No tenderness to palpation. No guarding, no rebound. No masses appreciated. EXTREMITIES: Patient has limited range of motion of the left knee. On visual inspection, there is no erythema or obvious swelling. There is no warmth to the left knee. There is significant pain with range of motion. Her distal pulses are good. Her sensation is good distally. There is no calf tenderness or swelling NEUROLOGICAL: Cranial nerves II through XII grossly intact. Normal speech, moving all extremities. PSYCH: Normal mood, normal affect. SKIN: She does have a patricio rash on her cheeks. Bedside ultrasound: I cannot detect any fluid around the joint. Course - Re-evaluation Re-evalutation: 05/09/17 16:31 It is possible that the patient has some sort of rheumatologic issue. I do not think she has got an infected joint and there is no fluid to tap at this time. She has no fever or elevated white count. She does have a rash on her face concerning for rosacea or possibly a lupus rash. I discussed this issue with Dr. Brock (the hospitalist) and she recommended following up in the community care clinic and that there was no real indication for admission. I did start the patient on steroids and I will give her the number for the community care clinic. Additionally, she will be going to the health department to try and set up some health insurance. - Vital Signs Vital signs: Temp Pulse Resp BP Pulse Ox 98.4 F 73 16 128/72 H 96 05/09/17 16:59 05/09/17 16:59 05/09/17 16:59 05/09/17 16:59 05/09/17 16:59 - Laboratory Result Diagrams: 05/09/17 11:40 05/09/17 11:40 Laboratory results interpreted by me: 05/09/17 11:40 C-Reactive Protein 12.1 H - Diagnostic Test Radiology reviewed: Image reviewed, Reports reviewed - MRI of the knee shows no obvious infection fluid. Discharge - Discharge Clinical Impression: Left knee pain Condition: Stable Disposition: HOME, SELF-CARE Additional Instructions: Thank you for choosing [facility] for your care. The examination and treatment you have received in the Emergency Department today has been rendered on an emergency basis only and is not intended to be a substitute for complete medical care. You should contact your follow-up physician as it is important that he or she examine you for any new or remaining problems. If given a copy of any lab tests or radiology reports, please bring them with you when you see your physician. If your problem worsens or new symptoms appear and you are unable to arrange prompt follow-up care, return to the Emergency Department. Specific signs to look out for: Fever (temperature greater than 100.5), increasing pain, redness or swelling of the joint. Any other instructions: Take the Medrol Dosepak as prescribed. Continue the pain medicine you already have. Follow-up in the community care clinic: I left a number on the chart. Prescriptions: Methylprednisolone [Medrol 4 mg Dosepack 21 Tab/Pack] 4 mg PO ASDIR PRN #21 [id number] PRN Reason: Referrals: [facility] [NO LOCAL MD] - Follow up as needed (This is the number the free clinic)
[2017-05-09 17:01] VITALS: BP 128/72
== END 2017-05-09 16:59 | disposition home or self-care (01) ==
LOC: ER 10:30
DX: M25.562 Pain in left knee (principal); M25.561 Pain in right knee; M79.89 Other specified soft tissue disorders; Z79.899 Other long term (current) drug therapy; D57.3 Sickle-cell trait
CPT/HCPCS: 99284; 96361; 96374; 96375; 36415; 84550; 85025; 85652; 86140; 80053; 81001; 73721; 71010; 73562; J2930; J2270; J2405; J7030

== ENCOUNTER 2017-06-12 04:03 | Emergency (ER) | payer SELFPAY ==
--- NOTE | 2017-06-12 04:54 | ER Document Report ---
HPI - HPI Patient complains to provider of: sore throat, left knee pain Pain Level: 5 Context: Patient is a 31 year old female that comes to the ED for chief complaint of sore throat, sneezing, congestion, pain along the front of her neck since yesterday. She denies fever, headache, difficulty swallowing or breathing. She also complains of left knee pain, states that she had an MRI 1 month ago and it is not any better. She states she is not sure what is wrong with her knee. She takes no daily medications, denies any medical history. She does have a follow-up with primary care scheduled but it has not happened yet. Past Medical History - General Information source: Patient - Social History Smoking Status: Never Smoker Frequency of alcohol use: None Drug Abuse: None Lives with: Family Family History: Reviewed & Not Pertinent Pulmonary Medical History: Reports: Hx Asthma Renal/ Medical History: Denies: Hx Peritoneal Dialysis Musculoskeltal Medical History: Reports Hx Arthritis Surgical Hx: Negative - Immunizations Immunizations up to date: Yes Hx Diphtheria, Pertussis, Tetanus Vaccination: Yes Vertical Provider Document - CONSTITUTIONAL General Appearance: WD/WN, No Apparent Distress - INFECTION CONTROL TRAVEL OUTSIDE OF THE [place] IN LAST 30 DAYS: No - HEENT HEENT: Atraumatic, Normocephalic. negative: Normal ENT Exam - Mild erythema of the pharynx, no swelling, tonsillitis, digits, abscess, or other abnormality noted. Mild adenopathy at the anterior cervical chain mostly on the right side , mild nasal congestion, otherwise normal ENT exam. - RESPIRATORY O2 Sat by Pulse Oximetry: 98 - GI/ABDOMEN Gastrointestinal: Abdomen Soft, Abdomen Non-Tender - BACK Back: Normal Inspection - MUSCULOSKELETAL/EXTREMETIES Musculoskeletal/Extremeties: Tender - Mild tenderness over the anterior aspect of the left knee, no effusion, erythema, normal range of motion, normal distal neurovascular exam, normal lower extremity exam otherwise. - DERM Integumentary: Warm, Dry, No Rash Course - Re-evaluation Re-evalutation: Patient with negative strep throat test, unremarkable physical exam, probably viral, because of knee pains and lymph node pains patient will be treated with dexamethasone, provided with anti-inflammatory, I provided the patient with a copy of her MRI from 1 month ago which shows chondromalacia but no other abnormalities. I questioned patient about her activities, she lives in a place where she is running up and down the stairs all of the time, this is probably exacerbating her symptoms. Discussed treatment recommendations, orthopedic referral, return precautions. Gave patient information on chondromalacia. Patient states understanding and agreement with plan - Vital Signs Vital signs: Temp Pulse Resp BP Pulse Ox 98.4 F 114 H 20 120/69 98 06/12/17 04:07 06/12/17 04:07 06/12/17 04:07 06/12/17 04:07 06/12/17 04:07 Discharge - Discharge Clinical Impression: Sinus congestion Pharyngitis Qualifiers: Pharyngitis/tonsillitis etiology: unspecified etiology Qualified Code(s): J02.9 - Acute pharyngitis, unspecified Left knee pain Qualifiers: Chronicity: acute Qualified Code(s): M25.562 - Pain in left knee Condition: Stable Disposition: HOME, SELF-CARE Additional Instructions: Your strep throat test is negative. Your examination and symptoms are most suggestive of a virus. You have been treated for the inflammation and pain with this, you can take [id number] medication such as Tylenol as well. Drink plenty of fluids and rest to recover. Your knee MRI showed chondromalacia, please see handout given for additional management of this, take naproxen as prescribed for this as well. Try to avoid repetitive painful motions such as running or climbing stairs until symptoms resolve. Follow-up with orthopedics if symptoms continue. Follow-up with your primary care as planned, if you continue to have a variety of joint pain consider an autoimmune workup with primary care as well. Return to the emergency department for any concerning symptoms including difficulty breathing, fever of 100.4 or greater, or any other concerning symptoms. Referrals: DIONISIO THIBODEAUX MD [ACTIVE STAFF] - Follow up as needed
[2017-06-12] MEDS ORDERED: DEXAMETHASONE SOD PHOS INJ 10 MG/1 ML VIAL IM ONE (05:40)
[2017-06-12 06:03] VITALS: BP 133/76
== END 2017-06-12 05:55 | disposition home or self-care (01) ==
LOC: ER 04:03
DX: J02.9 Acute pharyngitis, unspecified (principal); R09.81 Nasal congestion; M25.562 Pain in left knee; R06.7 Sneezing; M54.2 Cervicalgia
CPT/HCPCS: 99283; 96372; 87070; 87880; J1100

== ENCOUNTER 2017-08-24 09:00 | Emergency (ER) | payer SELFPAY ==
[2017-08-24 09:04] VITALS: BP 128/82
[2017-08-24] MEDS ORDERED: NAPROXEN 250 MG TABLET PO ONE (10:17)
--- NOTE | 2017-08-24 10:17 | ER Document Report ---
ED General - General Chief Complaint: Sore Throat Stated Complaint: FEVER Time Seen by Provider: 08/24/17 09:09 Mode of Arrival: Ambulatory Information source: Patient Notes: 31-year-old female sore throat body aches chills dizziness when she stands. Patient denies any nausea vomiting Patient notes symptoms started yesterday notes daughter has no similar symptoms TRAVEL OUTSIDE OF THE [place] IN LAST 30 DAYS: No - HPI Onset: Yesterday Onset/Duration: Persistent Quality of pain: Achy Severity: Mild Pain Level: 1 Associated symptoms: Body/muscle aches, Sore throat, Weakness Exacerbated by: Standing Relieved by: Denies Similar symptoms previously: No Recently seen / treated by doctor: No - Related Data Allergies/Adverse Reactions: No Known Allergies Allergy (Verified 08/24/17 09:02) Past Medical History - Social History Smoking Status: Never Smoker Cigarette use (# per day): No Chew tobacco use (# tins/day): No Smoking Education Provided: No Frequency of alcohol use: None Drug Abuse: None Family History: Reviewed & Not Pertinent Patient has suicidal ideation: No Patient has homicidal ideation: No Pulmonary Medical History: Reports: Hx Asthma Renal/ Medical History: Denies: Hx Peritoneal Dialysis Musculoskeltal Medical History: Reports Hx Arthritis - Immunizations Immunizations up to date: Yes Hx Diphtheria, Pertussis, Tetanus Vaccination: Yes Review of Systems - Review of Systems Notes: REVIEW OF SYSTEMS: CONSTITUTIONAL : Denies fever, chills, or sweats. Denies recent illness. EENT: Admits to sore throat CARDIOVASCULAR: Denies chest pain. Denies palpitations or racing or irregular heart beat. Denies ankle edema. RESPIRATORY: Denies cough, cold, or chest congestion. Denies shortness of breath, difficulty breathing, or wheezing. GASTROINTESTINAL: Denies abdominal pain or distention. Denies nausea, vomiting , or diarrhea. Denies blood in vomitus, stools, or per rectum. Denies black, tarry stools. Denies constipation. GENITOURINARY: Denies difficulty urinating, painful urination, burning, frequency, blood in urine, or discharge. FEMALE GENITOURINARY: Denies vaginal bleeding, heavy or abnormal periods, irregular periods. Denies vaginal discharge or odor. MUSCULOSKELETAL: Admits to body aches SKIN: Denies rash, lesions or sores. HEMATOLOGIC : Denies easy bruising or bleeding. LYMPHATIC: Denies swollen, enlarged glands. NEUROLOGICAL: Admits to dizziness upon standing PSYCHIATRIC: Denies anxiety or stress. Denies depression, suicidal ideation, or homicidal ideation. ALL OTHER SYSTEMS REVIEWED AND NEGATIVE. PHYSICAL EXAMINATION: GENERAL: Well-appearing, well-nourished and in no acute distress. HEAD: Atraumatic, normocephalic. EYES: Pupils equal round and reactive to light, extraocular movements intact, conjunctiva are normal. ENT: Nares patent, oropharynx clear without exudates. Moist mucous membranes. NECK: Normal range of motion, supple without lymphadenopathy LUNGS: Breath sounds clear to auscultation bilaterally and equal. No wheezes rales or rhonchi. HEART: Regular rate and rhythm without murmurs ABDOMEN: Soft, nontender, nondistended abdomen. No guarding, no rebound. No masses appreciated. Female : deferred Musculoskeletal: Normal range of motion, no pitting or edema. No cyanosis. NEUROLOGICAL: Cranial nerves grossly intact. Normal speech, normal gait. Normal sensory, motor exams PSYCH: Normal mood, normal affect. SKIN: Warm, Dry, normal turgor, no rashes or lesions noted. Dictation was performed using [employer] voice recognition software Physical Exam - Vital signs Vitals: Temp Pulse Resp BP Pulse Ox 98.4 F 89 14 128/82 H 98 08/24/17 09:03 08/24/17 09:03 08/24/17 09:03 08/24/17 09:03 08/24/17 09:03 Course - Re-evaluation Re-evalutation: 08/24/17 13:24 Patient's physical examination was quite benign, she looks well, patient will be treated with anti-inflammatories for body aches and sore throat. Otherwise rapid strep was negative patient will be diagnosed with a viral syndrome and given very strict return precautions patient states she understands and will return After performing a Medical Screening Examination, I estimate there is LOW risk for ACUTE CORONARY SYNDROME, PULMONARY EMBOLI, RESPIRATORY FAILURE, SEPSIS OR MENINGITIS, thus I consider the discharge disposition reasonable. I have reevaluated this patient multiple times and no significant life threatening changes are noted. The patient and I have discussed the diagnosis and risks, and we agree with discharging home with close follow-up. We also discussed returning to the Emergency Department immediately if new or worsening symptoms occur. We have discussed the symptoms which are most concerning (e.g., changing or worsening pain, trouble swallowing or breathing, neck stiffness, fever) that necessitate immediate return. - Vital Signs Vital signs: Temp Pulse Resp BP Pulse Ox 98.4 F 89 14 128/82 H 98 08/24/17 09:03 08/24/17 09:03 08/24/17 09:03 08/24/17 09:03 08/24/17 09:03 Discharge - Discharge Clinical Impression: Viral pharyngitis, Orthostatic hypotension Condition: Stable Disposition: HOME, SELF-CARE Instructions: Sore Throat ([facility]), Viral Syndrome ([facility]) Additional Instructions: Follow up with your physician tomorrow for further care or return to the ED IMMEDIATELY if symptoms worsen or new concerns occur. If you cannot afford to follow up with your primary care physician a list of low cost clinics have been provided at the end of your discharge papers as well.
== END 2017-08-24 10:35 | disposition home or self-care (01) ==
LOC: ER 09:00
DX: I95.1 Orthostatic hypotension (principal); J02.9 Acute pharyngitis, unspecified; B97.89 Other viral agents as the cause of diseases classified elsewhere; R50.9 Fever, unspecified; M79.1 Myalgia; R53.1 Weakness
CPT/HCPCS: 87070; 87880; 99283

== ENCOUNTER 2017-08-28 09:57 | Emergency (ER) | payer SELFPAY ==
[2017-08-28] MEDS ORDERED: GUAIFENESIN 600 MG TABLET.SA PO ONE (10:21)
[2017-08-28] MEDS ORDERED: KETOROLAC TROMETHAMINE INJ/PF 30 MG/1 ML SDV IM ONE (10:21)
[2017-08-28] MEDS ORDERED: DEXAMETHASONE SOD PHOS INJ 10 MG/1 ML VIAL IM ONE (10:21)
[2017-08-28] MEDS ORDERED: PSEUDOEPHEDRINE HCL 30 MG TABLET PO ONE (10:21)
--- NOTE | 2017-08-28 10:26 | ER Document Report ---
ED Flu Like - General Chief Complaint: Fever Stated Complaint: SORE THROAT Time Seen by Provider: 08/28/17 10:15 Mode of Arrival: Ambulatory Information source: Patient Notes: 31-year-old female presents to ED for cough cold congestion sore throat body aches and fever. She was seen here on Wednesday with same symptoms had a strep test done that was negative. Her follow-up throat culture was also normal for. Patient is asking why she did not get any antibiotics I have explained to her that this is viral. TRAVEL OUTSIDE OF THE [place] IN LAST 30 DAYS: No - HPI Onset: Last week Timing/Duration: Persistent Quality of pain: Achy Severity: Moderate Pain Level: 3 Associated symptoms: Body/muscle aches, Chills, Nonproductive cough, Fever, Hoarseness, Vomiting, Sinus pain/drainage, Sore throat Similar symptoms previously: Yes Recently seen / treated by doctor: Yes - Related Data Allergies/Adverse Reactions: No Known Allergies Allergy (Verified 08/24/17 09:02) Past Medical History - General Information source: Patient - Social History Smoking Status: Never Smoker Cigarette use (# per day): No Chew tobacco use (# tins/day): No Smoking Education Provided: No Frequency of alcohol use: None Drug Abuse: None Lives with: Family Family History: Reviewed & Not Pertinent Patient has suicidal ideation: No Patient has homicidal ideation: No - Past Medical History Cardiac Medical History: Reports: None Pulmonary Medical History: Reports: Hx Asthma EENT Medical History: Reports: None Neurological Medical History: Reports: None Endocrine Medical History: Reports: None Renal/ Medical History: Reports: None Malignancy Medical History: Reports: None GI Medical History: Reports: None Musculoskeltal Medical History: Reports Hx Arthritis Skin Medical History: Reports None Psychiatric Medical History: Reports: None Traumatic Medical History: Reports: None Infectious Medical History: Reports: None Surgical Hx: Negative Past Surgical History: Reports: None - Immunizations Immunizations up to date: Yes Hx Diphtheria, Pertussis, Tetanus Vaccination: Yes Review of Systems - Review of Systems Constitutional: Chills, Fever, Recent illness EENT: Nose discharge, Sinus pressure, Sinus discharge, Throat pain Cardiovascular: No symptoms reported Respiratory: Cough Gastrointestinal: No symptoms reported Genitourinary: No symptoms reported Female Genitourinary: No symptoms reported Musculoskeletal: Muscle pain, Muscle stiffness - Body aches Skin: No symptoms reported Hematologic/Lymphatic: No symptoms reported Neurological/Psychological: No symptoms reported -: Yes All other systems reviewed and negative Physical Exam - Vital signs Vitals: Temp Pulse Resp BP Pulse Ox 98.4 F 95 18 126/90 H 98 08/28/17 10:05 08/28/17 10:05 08/28/17 10:05 08/28/17 10:05 08/28/17 10:05 Interpretation: Normal - General General appearance: Appears well, Alert - HEENT Head: Normocephalic, Atraumatic Eyes: Normal Pupils: PERRL Ears: Normal External canal: Normal Tympanic membrane: Normal Sinus: Normal Nasal: Purulent discharge, Swelling Mouth/Lips: Normal Mucous membranes: Normal Pharynx: Post nasal drainage. No: Erythema, Exudate, Peritonsillar abscess, Retropharyngeal abscess, Tonsillar hypertrophy, Uvular edema, Potential airway comprom. Neck: Anterior cervical chain - Respiratory Respiratory status: No respiratory distress Chest status: Nontender Breath sounds: Nonproductive cough. No: Rales, Rhonchi, Stridor, Wheezing Chest palpation: Normal - Cardiovascular Rhythm: Regular Heart sounds: Normal auscultation Murmur: No - Abdominal Inspection: Normal Distension: No distension Bowel sounds: Normal Tenderness: Nontender Organomegaly: No organomegaly - Back Back: Normal, Nontender - Extremities General upper extremity: Normal inspection, Nontender, Normal color, Normal ROM , Normal temperature General lower extremity: Normal inspection, Nontender, Normal color, Normal ROM , Normal temperature, Normal weight bearing. No: Yumiko's sign - Neurological Neuro grossly intact: Yes Cognition: Normal Orientation: AAOx4 Gerson Coma Scale Eye Opening: Spontaneous Krebs Coma Scale Verbal: Oriented Gerosn Coma Scale Motor: Obeys Commands Krebs Coma Scale Total: 15 Speech: Normal Motor strength normal: LUE, RUE, LLE, RLE Sensory: Normal - Psychological Associated symptoms: Normal affect, Normal mood - Skin Skin Temperature: Warm Skin Moisture: Dry Skin Color: Normal Course - Re-evaluation Re-evalutation: 08/28/17 10:26 Patient was seen on Wednesday this week for the same symptoms. Her strep was negative. Her follow-up throat culture was also negative for any acute bacterial infection. Patient is requesting antibiotics. I explained to patient that her signs and symptoms or other viral infection. I did treat her with Sudafed 30 mg Mucinex 600 mg Toradol 30 mg IM and Decadron 10 mg IM. We will get a chest x-ray and reassess due to the cough and fever. - Vital Signs Vital signs: Temp Pulse Resp BP Pulse Ox 98.4 F 75 16 132/87 H 98 08/28/17 11:41 08/28/17 11:41 08/28/17 11:41 08/28/17 11:41 08/28/17 11:41 Discharge - Discharge Clinical Impression: Viral pharyngitis, Viral illness Disposition: HOME, SELF-CARE Instructions: Family Physicians / Practices Additional Instructions: UPPER RESPIRATORY ILLNESS: You have a viral infection of the respiratory passages -- a "cold." This common infection causes nasal congestion, drainage, and often sore throat and cough. It is highly contagious. The disease usually lasts about 10 to 14 days. There is no "cure" for the viral infection -- it must run its course. If there is a complication, such as bacterial infection in the nose, sinuses, middle ear, or bronchial tubes, antibiotics may be required. The antibiotics won't affect the virus. Drink plenty of fluids. A humidifier may help. An expectorant medication or decongestant may make you more comfortable. Use acetaminophen or ibuprofen for fever or aches. See the doctor if fever persists over two days, if there is any significant worsening of your symptoms, or if you simply fail to improve as expected. Viral Syndrome The physician has diagnosed a viral infection. Viruses not only cause "colds," but can cause many different symptoms including generalized aching, fever, headache, cough, diarrhea, nausea, vomiting, and fatigue. The treatment, for the most part, is simply relief of symptoms. This means that antibiotics are usually not given. Rest, fluids, pain medications and, occasionally, medication for the specific symptoms that are most bothersome will be prescribed. Use good handwashing to avoid passing the virus to others. Shared toys should be cleaned with disinfectant. Clean the toilets, sinks, and counter surfaces in bathrooms. Launder clothing in hot water. Contact the physician if you develop any new or unusual symptoms such as severe headache, stiff neck, high fever, chest pain, productive cough, or shortness of breath. You should be rechecked if you don't see marked improvement within seven to 10 days. SORE THROAT: Sore throats may be caused by viruses, bacteria, or fungi. Most are due to a virus, and must get better on their own. Bacterial sore throats, particularly those due to "strep," need treatment with antibiotics. If an antibiotic is prescribed, be sure to take the medication for a full 10 days. Failure to take the antibiotic can result in complications such as rheumatic fever. Sometimes, an injection of antibiotics is given instead of pills or liquid. This single "shot" is equal in effectiveness to the oral medication. To relieve symptoms, take acetaminophen for pain. Sip clear liquids frequently, or eat popsicles or ice chips. Anesthetic sprays or lozenges may help. Make sure the air in the room is not too dry. Avoid using decongestants or antihistamines. Call the doctor if there is no improvement in two days, or if you have difficulty breathing, increasing throat pain, high fever, rash, or frequent vomiting. DECONGESTANT MEDICATION: A decongestant medicine has been suggested. Often this medicine is combined in the same tablet with an antihistamine or expectorant. This type of medicine is helpful in treating a bad cold or sinus condition, as well as in treatment of the nasal congestion of hay fever. It is not of much benefit for lung infections. Decongestant medicines are related to stimulants. They can cause an increase in blood pressure and heart rate. Persons with heart disease and high blood pressure should not take decongestants without discussing this with the physician. If you develop palpitations, chest pain, headache, or tremors, stop the medicine and consult your physician. COUGH-SUPPRESSANT & EXPECTORANT MEDICATION: You are to use a cough medication as needed for relief of symptoms. This medicine is a combination of an expectorant (to make the mucous thinner and more easily "coughed up") and a cough suppressant (to reduce the frequency of coughing). The cough-suppressant medicine is related to narcotics. You may experience mild nausea and sleepiness. Some patients who are very sensitive to narcotics may have stomach pain from this medicine. Taking the medicine with food reduces these side effects. Do not drive or work with machinery until you know how this medicine affects you. The expectorant should have no side effects. Iodine-containing expectorants (such as organidin) should not be taken by persons with active thyroid disease unless approved by your doctor. Call the doctor if you develop shortness of breath, hives, rash, itching, lightheadedness, or severe nausea and vomiting. STEROID MEDICATION: You have been given an injection of or oral medicine of the cortisone/ steroid class. This medication is used to control inflammation or allergy. Rolando t is usually only given for a short period of time, until the acute process subsides. There are usually no side effects from short-term use of cortisone-like medications. Some persons feel an increased sense of well-being and are not sleepy at bedtime. Long-term use of cortisone medications is best avoided, unless required for a severe condition. If your condition does not remit, or relapses after the course of corticosteroid medication, you should consult your physician. USE OF ACETAMINOPHEN (Tylenol): Acetaminophen may be taken for pain relief or fever control. It's much safer than aspirin, offering a wider range of "safe" dosages. It is safe during . Some brand names are Tylenol, Panadol, Datril, Anacin 3, Tempra, and Liquiprin. Acetaminophen can be repeated every four hours. The following are maximum recommended dosages: >89 pounds or adults 650 mg to 900 mg Acetaminophen can be repeated every four hours. Maximum dose not to exceed 4000 mg a day. You were given Toradol 30 mg IM, Decadron 10 mg IM, Sudafed 30 mg p.o., and Mucinex 600 mg p.o. These of your cough cold congestion and sore throat symptoms. You do not have strep the tonsils are not red they are not exudative your test was -2 days ago and the throat culture was also negative for any bacterial infections. You do have a cold with postnasal drip which is irritating her throat and causing you the irritation. Viruses need time plenty of fluids and rest. FOLLOW-UP CARE: If you have been referred to a physician for follow-up care, call the physician s office for an appointment as you were instructed or within the next two days. If you experience worsening or a significant change in your symptoms, notify the physician immediately or return to the Emergency Department at any time for re-evaluation. Forms: Elevated Blood Pressure, Return to Work
--- NOTE | 2017-08-28 11:04 | RADIOLOGY REPORT (SQ) ---
EXAM DESCRIPTION: CHEST 2 VIEWS COMPLETED DATE/TIME: 08/28/2017 10:47 am REASON FOR STUDY: Cough congestion fever COMPARISON: None. EXAM PARAMETERS: NUMBER OF VIEWS: two views TECHNIQUE: Digital Frontal and Lateral radiographic views of the chest acquired. RADIATION DOSE: NA LIMITATIONS: none FINDINGS: LUNGS AND PLEURA: No opacities, masses or pneumothorax. No pleural effusion. MEDIASTINUM AND HILAR STRUCTURES: No masses or contour abnormalities. HEART AND VASCULAR STRUCTURES: Heart normal size. No evidence for failure. BONES: No acute findings. HARDWARE: None in the chest. OTHER: No other significant finding. IMPRESSION: NO ACUTE RADIOGRAPHIC FINDING IN THE CHEST. TECHNICAL DOCUMENTATION: JOB ID: [id number] [employer]- All Rights Reserved Reading location - IP/workstation name: [email or web address]
[2017-08-28 11:43] VITALS: BP 132/87
== END 2017-08-28 11:43 | disposition home or self-care (01) ==
LOC: ER 09:57
DX: J02.9 Acute pharyngitis, unspecified (principal); B97.89 Other viral agents as the cause of diseases classified elsewhere; R50.9 Fever, unspecified; M79.1 Myalgia; R49.0 Dysphonia; J45.909 Unspecified asthma, uncomplicated
CPT/HCPCS: 99283; 96372; 71046; J1885; J1100

== ENCOUNTER 2018-04-29 17:27 | Emergency (ER) | payer SELFPAY ==
[2018-04-29 17:47] VITALS: BP 128/86
--- NOTE | 2018-04-29 17:58 | ER Document Report ---
ED General - General Chief Complaint: Chest Congestion Stated Complaint: FEVER, NASAL BLEEDING Time Seen by Provider: 04/29/18 17:50 Mode of Arrival: Ambulatory Information source: Patient Notes: Chief complaint: Nasal congestion nosebleed History of complain:( obtained from----patient) 32 years old female with a history of sickle cell disease presents today with nasal congestion whenever she blows noted some blood. Otherwise no fever chills or other constitutional symptoms. Onset: As above Duration: Gradual Severity: Mild Quality: Not applicable Context: As above Exacerbating factor and relieving factors: REVIEW OF SYSTEMS: CONSTITUTIONAL : Denies fever, chills, or sweats. Denies recent illness. EENT: Denies eye, ear, throat, or mouth pain or symptoms. Denies nasal or sinus congestion or discharge. Denies throat, tongue, or mouth swelling or difficulty swallowing. CARDIOVASCULAR: Denies chest pain. Denies palpitations or racing or irregular heart beat. Denies ankle edema. RESPIRATORY: Denies cough, cold, or chest congestion. Denies shortness of breath, difficulty breathing, or wheezing. GASTROINTESTINAL: Denies distention. Denies nausea, vomiting, or diarrhea. Denies blood in vomitus, stools, or per rectum. Denies black, tarry stools. Denies constipation. GENITOURINARY: Denies difficulty urinating, painful urination, burning, frequency, blood in urine, or discharge. FEMALE GENITOURINARY: Denies vaginal bleeding, heavy or abnormal periods, irregular periods. Denies vaginal discharge or odor. MUSCULOSKELETAL: Denies back or neck pain or stiffness. Denies joint pain or swelling. SKIN: Denies rash, lesions or sores. HEMATOLOGIC : Denies easy bruising or bleeding. LYMPHATIC: Denies swollen, enlarged glands. NEUROLOGICAL: Denies confusion or altered mental status. Denies passing out or loss of consciousness. Denies dizziness or lightheadedness. Denies headache. Denies weakness or paralysis or loss of use of either side. Denies problems with gait or speech. Denies sensory loss, numbness, or tingling. Denies seizures. PSYCHIATRIC: Denies anxiety or stress. Denies depression, suicidal ideation, or homicidal ideation. ALL OTHER SYSTEMS REVIEWED AND NEGATIVE. PHYSICAL EXAMINATION: GENERAL: Well-appearing, well-nourished and in no acute distress. HEAD: Atraumatic, normocephalic. EYES: Pupils equal round and reactive to light, extraocular movements intact, conjunctiva are normal. ENT: Nares patent, oropharynx clear without exudates. Moist mucous membranes. NECK: Normal range of motion, supple without lymphadenopathy LUNGS: Breath sounds clear to auscultation bilaterally and equal. No wheezes rales or rhonchi. HEART: Regular rate and rhythm without murmurs ABDOMEN: Soft, nontender, nondistended abdomen. No guarding, no rebound. No masses appreciated. Examination of genitals-deferred Musculoskeletal: Normal range of motion, no pitting or edema. No cyanosis. NEUROLOGICAL: Cranial nerves grossly intact. Normal speech, normal gait. Normal sensory, motor exams PSYCH: Normal mood, normal affect. SKIN: Warm, Dry, normal turgor, no rashes or lesions noted. Dictation was performed using [employer] voice recognition software TRAVEL OUTSIDE OF THE [place] IN LAST 30 DAYS: No - HPI Notes: Dictated - Related Data Allergies/Adverse Reactions: No Known Allergies Allergy (Verified 04/29/18 17:31) Past Medical History - Social History Smoking Status: Never Smoker Cigarette use (# per day): No Chew tobacco use (# tins/day): No Smoking Education Provided: No Frequency of alcohol use: Rare Drug Abuse: None, Bath salts Lives with: Family Family History: Reviewed & Not Pertinent Pulmonary Medical History: Reports: Hx Asthma Renal/ Medical History: Denies: Hx Peritoneal Dialysis Musculoskeletal Medical History: Reports Hx Arthritis - Immunizations Immunizations up to date: Yes Hx Diphtheria, Pertussis, Tetanus Vaccination: Yes Review of Systems - Review of Systems Notes: Dictated Physical Exam - Vital signs Vitals: Temp Pulse Resp BP Pulse Ox 98.0 F 85 18 128/86 H 98 04/29/18 17:46 04/29/18 17:46 04/29/18 17:46 04/29/18 17:46 04/29/18 17:46 - Notes Notes: Dictated Course - Vital Signs Vital signs: Temp Pulse Resp BP Pulse Ox 98.0 F 85 18 128/86 H 98 04/29/18 17:46 04/29/18 17:46 04/29/18 17:46 04/29/18 17:46 04/29/18 17:46 Discharge - Discharge Clinical Impression: Sinusitis Qualifiers: Sinusitis location: unspecified location Chronicity: acute Recurrence: recurrent Qualified Code(s): J01.91 - Acute recurrent sinusitis, unspecified Sickle cell disease Qualifiers: Sickle-cell associated disorders: without crisis Qualified Code(s): D57.1 - Sickle-cell disease without crisis Condition: Fair Disposition: HOME, SELF-CARE Instructions: Sinusitis ([facility]) Prescriptions: Amoxicillin 1 tab PO TID #30 tab Ibuprofen [Ibu] 600 mg PO TID #30 tablet
== END 2018-04-29 18:02 | disposition home or self-care (01) ==
LOC: ER 17:27
DX: J01.91 Acute recurrent sinusitis, unspecified (principal); D57.1 Sickle-cell disease without crisis; R09.89 Other specified symptoms and signs involving the circulatory and respiratory systems; R50.9 Fever, unspecified; R04.0 Epistaxis; J45.909 Unspecified asthma, uncomplicated
CPT/HCPCS: 99283

== ENCOUNTER 2018-05-19 23:24 | Emergency (ER) | payer SELFPAY ==
--- NOTE | 2018-05-20 02:01 | ER Document Report ---
HPI - HPI Patient complains to provider of: cough, coughed up blood Time Seen by Provider: 05/20/18 01:28 Pain Level: 5 Context: Patient is a 32-year-old female that comes to the emergency department for chief complaint of a cough for the past 2 days. She states that she was coughing hard and she coughed up some blood. Afterwards she coughed up some pink sputum and then it appeared to clear. She states she thinks she had a fever but she is not sure. 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 She is out of her inhaler at home. She states she has had occasional wheezing. She denies any other medical history or any other complaints. Past Medical History - General Information source: Patient - Social History Smoking Status: Never Smoker Frequency of alcohol use: None Drug Abuse: None Lives with: Family Family History: Reviewed & Not Pertinent Pulmonary Medical History: Reports: Hx Asthma Renal/ Medical History: Denies: Hx Peritoneal Dialysis Musculoskeletal Medical History: Reports Hx Arthritis Surgical Hx: Negative - Immunizations Immunizations up to date: Yes Hx Diphtheria, Pertussis, Tetanus Vaccination: Yes Vertical Provider Document - CONSTITUTIONAL General Appearance: WD/WN, No Apparent Distress - INFECTION CONTROL TRAVEL OUTSIDE OF THE [place] IN LAST 30 DAYS: No - HEENT HEENT: Atraumatic, Normal ENT Exam, Normocephalic - NECK Neck: Normal Inspection - RESPIRATORY Respiratory: Breath Sounds Normal, No Respiratory Distress, Other - occassional tight cough - CARDIOVASCULAR Cardiovascular: Regular Rate, Regular Rhythm - GI/ABDOMEN Gastrointestinal: Abdomen Soft, Abdomen Non-Tender - BACK Back: Normal Inspection - MUSCULOSKELETAL/EXTREMETIES Musculoskeletal/Extremeties: MAEW, FROM, Non-Tender - NEURO Level of Consciousness: Awake, Alert, Appropriate - DERM Integumentary: Warm, Dry, No Rash Course - Re-evaluation Re-evalutation: Patient is well-appearing on exam, no tachypnea, no hypoxia, no fever. No wheezing on my evaluation although she reports she has intermittently been some wheezing at home. Chest x-ray unremarkable. Patient symptoms are suggestive of bronchitis, I suspect this is why she had the resolved hemoptysis. She does not have tachycardia, she is not short of breath on my reevaluation, no oral contraceptive, she does not smoke, no lower extremity swelling, I have low suspicion of pulmonary embolism. Discussed with patient. Patient will be treated for asthma component with wheezing and bronchitis with prednisone, she was provided with inhaler on request, - Vital Signs Vital signs: Temp Pulse Resp BP Pulse Ox 98.1 F 74 17 139/85 H 98 05/19/18 23:29 05/19/18 23:29 05/19/18 23:29 05/19/18 23:29 05/19/18 23:29 Discharge - Discharge Clinical Impression: Productive cough, Hemoptysis Asthma Qualifiers: Asthma severity: unspecified severity Asthma persistence: intermittent Asthma complication type: unspecified Qualified Code(s): J45.20 - Mild intermittent asthma, uncomplicated Condition: Stable Disposition: HOME, SELF-CARE Additional Instructions: Your chest x-ray does not show any concerning abnormality. Your examination and symptoms are consistent with inflammation in your upper respiratory tract (bronchitis). Take the prednisone as prescribed, use the albuterol inhaler if needed (use the spacer), I also recommend over the counter anti-allergy medication such as cetirizine. Follow-up with primary care. Return if you worsen including difficulty breathing, spiking fever, or any other concerning or worsening symptoms. Prescriptions: Albuterol Sulfate [Proair HFA Inhalation Aerosol 8.5 gm MDI] 2 puff IH Q4H PRN #1 mdi PRN Reason: Prednisone [Deltasone 20 mg Tablet] 2 tab PO DAILY 5 Days #10 tablet
--- NOTE | 2018-05-20 02:10 | RADIOLOGY REPORT (SQ) ---
EXAM DESCRIPTION: XR CHEST 1 VIEW COMPLETED DATE/TME: 05/20/2018 02:01 CLINICAL HISTORY: 32 years, Female, Hemoptysis COMPARISON: 08/28/2017 chest NUMBER OF VIEWS: 1 TECHNIQUE: Portable chest LIMITATIONS: None. FINDINGS: Heart size normal. Lungs are clear. No pneumothorax. IMPRESSION: Negative chest copyright 2010 [employer]- All Rights Reserved
[2018-05-20] MEDS ORDERED: ALBUTEROL SULFATE HFA (90 MCG/PUFF) 8 GM MDI (1 MDI/ER DISP) IH ONE (02:35)
[2018-05-20] MEDS ORDERED: PREDNISONE 20 MG TABLET PO ONE (02:36)
[2018-05-20 02:56] VITALS: BP 119/98
== END 2018-05-20 02:57 | disposition home or self-care (01) ==
LOC: ER 23:24
DX: J45.20 Mild intermittent asthma, uncomplicated (principal); R04.2 Hemoptysis
CPT/HCPCS: 99283; 71045; J7512; J3490

== ENCOUNTER 2018-07-06 23:07 | Emergency (ER) | payer SELFPAY ==
[2018-07-07 01:54] LABS: ABSOLUTE BASOPHILS # (AUTO) 0.1 10^3/uL (0.0-0.2); ABSOLUTE EOSINOPHILS # (AUTO) 0.1 10^3/uL (0.0-0.6); ABSOLUTE LYMPHOCYTES (AUTO) 3.6 10^3/uL (0.5-4.7); ABSOLUTE NEUT (AUTO) 4.3 10^3/uL (1.7-8.2); BASOPHILS % (AUTO) 0.8 % (0-2); EOSINOPHILS % (AUTO) 0.9 % (0-6); HEMATOCRIT 41.8 % (36.0-47.0); HEMOGLOBIN 14.7 g/dL (12.0-15.5); LYMPHOCYTES % (AUTO) 39.7 % (13-45); MEAN CORPUSCULAR HEMOGLOBIN 29.4 pg (27.0-33.4); MEAN CORPUSCULAR HGB CONC 35.2 g/dL (32.0-36.0); MEAN CORPUSCULAR VOLUME 83 fl (80-97); MONOCYTES % (AUTO) 11.1 % (3-13); PLATELET COUNT 249 10^3/uL (150-450); RED BLOOD COUNT 5.01 10^6/uL (3.72-5.28); RED CELL DISTRIBUTION WIDTH 13.2 % (11.5-14.0); SEGMENTED NEUTROPHILS % (AUTO) 47.5 % (42-78); TOTAL CELLS COUNTED % (AUTO) 100 %
[2018-07-07 02:11] LABS: ALANINE AMINOTRANSFERASE 18 U/L (9-52); ALBUMIN 4.3 g/dL (3.5-5.0); ALKALINE PHOSPHATASE 59 U/L (38-126); ANION GAP 9 (5-19); ASPARTATE AMINO TRANSFERASE 18 U/L (14-36); BILIRUBIN,DIRECT 0.2 mg/dL (0.0-0.4); BILIRUBIN,TOTAL 0.6 mg/dL (0.2-1.3); BLOOD UREA NITROGEN 8 mg/dL (7-20); CALCIUM 9.3 mg/dL (8.4-10.2); CARBON DIOXIDE 26 mmol/L (22-30); CHLORIDE 107 mmol/L (98-107); GLUCOSE 95 mg/dL (75-110); SODIUM 141.5 mmol/L (137-145); TOTAL PROTEIN 7.4 g/dL (6.3-8.2)
[2018-07-07 02:25] LABS: APPEARANCE,URINE SLIGHTLY-CLOUDY; BILIRUBIN,URINE NEGATIVE (NEGATIVE); COLOR,URINE YELLOW; GLUCOSE, URINE NEGATIVE (NEGATIVE); KETONES,URINE NEGATIVE (NEGATIVE); LEUKOCYTE ESTERASE,URINE LARGE (NEGATIVE); NITRITE,URINE NEGATIVE (NEGATIVE); PROTEIN,URINE NEGATIVE (NEGATIVE); URINE SPECIFIC GRAVITY 1.013; UROBILINOGEN,URINE NEGATIVE mg/dL (<2.0)
[2018-07-07] MEDS ORDERED: LIDOCAINE 2% VISCOUS SOLN 20 ML UDCUP PO ONE (02:48)
[2018-07-07] MEDS ORDERED: MAG HYDROX/AL HYDROX/SIMETH SUSP 30 ML UDCUP PO ONE (02:48)
[2018-07-07] MEDS ORDERED: METOCLOPRAMIDE HCL ORAL SOLN 10 MG/10 ML UDCUP PO ONE (02:48)
[2018-07-07] MEDS ORDERED: DICYCLOMINE HCL INJ 20 MG/2 ML AMPULE IM ONE (02:48)
[2018-07-07 03:58] VITALS: BP 112/70
--- NOTE | 2018-07-07 04:12 | ER Document Report ---
Entered by LENORA TINEO SCRIBE 07/07/18 0301 Acting as scribe for:BRANDO MERCHANT DO ED General - General Chief Complaint: Abdominal Pain Stated Complaint: ABDOMINAL PAIN Time Seen by Provider: 07/07/18 02:19 Mode of Arrival: Ambulatory Information source: Patient Notes: Patient is a 32 year old female with asthma presents to the emergency department complaining of abdominal pain with alternating diarrhea and constipation onset 5 days ago. Patient states her pain is worsening and last reports having diarrhea today. Shes also complains of a burning abdominal pain that radiates into her chest and throat, nausea, diaphorhesis, and chills. She denies any dysuria, urinary frequency, urinary retention or burning. TRAVEL OUTSIDE OF THE [place] IN LAST 30 DAYS: No - Related Data Allergies/Adverse Reactions: No Known Allergies Allergy (Verified 07/06/18 23:11) Past Medical History - General Information source: Patient - Social History Smoking Status: Never Smoker Cigarette use (# per day): No Chew tobacco use (# tins/day): No Smoking Education Provided: No Frequency of alcohol use: None Family History: Reviewed & Not Pertinent Patient has suicidal ideation: No Patient has homicidal ideation: No Pulmonary Medical History: Reports: Hx Asthma Musculoskeletal Medical History: Reports Hx Arthritis - Immunizations Immunizations up to date: Yes Hx Diphtheria, Pertussis, Tetanus Vaccination: Yes Review of Systems - Review of Systems Constitutional: See HPI, Chills, Diaphoresis EENT: No symptoms reported Cardiovascular: No symptoms reported Respiratory: No symptoms reported Gastrointestinal: See HPI, Abdominal pain, Diarrhea, Nausea, Constipation Genitourinary: No symptoms reported Female Genitourinary: No symptoms reported Musculoskeletal: No symptoms reported Skin: No symptoms reported Hematologic/Lymphatic: No symptoms reported Neurological/Psychological: No symptoms reported -: Yes All other systems reviewed and negative Physical Exam - Vital signs Vitals: Temp Pulse Resp BP Pulse Ox 98.1 F 83 18 143/89 H 99 07/06/18 23:15 07/06/18 23:15 07/06/18 23:15 07/06/18 23:15 07/06/18 23:15 - Notes Notes: GENERAL: Alert, interacts well. No acute distress. HEAD: Normocephalic, atraumatic. EYES: Pupils equal, round, and reactive to light. Extraocular movements intact. ENT: Oral mucosa moist, tongue midline. Hard mass on the hard palate, nontender palpation, no erythema, suspect this is chronic. NECK: Full range of motion. Supple. Trachea midline. LUNGS: Clear to auscultation bilaterally, no wheezes, rales, or rhonchi. No respiratory distress. HEART: Regular rate and rhythm. 1/6 systolic ejection murmur. ABDOMEN: Soft, Mild diffuse tenderness to palpation, no focal tenderness, no rebound tenderness. Non-distended. Bowel sounds present in all 4 quadrants. EXTREMITIES: Moves all 4 extremities spontaneously. NEUROLOGICAL: Alert and oriented x3. Normal speech. PSYCH: Normal affect, normal mood. SKIN: Warm, dry, normal turgor. Mild erythema to her cheeks and chin, no swelling, no erythema noted across her chest or hands. Course - Re-evaluation Re-evalutation: 07/07/18 02:55 CBC unremarkable, CMP unremarkable, lipase normal, urinalysis shows large leukocyte esterase, negative test. No blood. Patient is having abso lutely no urinary symptoms. Urinary tract infection does not fit with intermittent cramping abdominal pain associated with alternating diarrhea and constipation. Urinalysis will be sent for culture. Abdomen has mild diffuse tenderness to palpation, she is not peritoneal, no focal tenderness to indicate appendicitis or cholecystitis. Patient will have a GI cocktail administered and will be given Bentyl. Patient will be given prescription for Zantac and Bentyl to help with the burning pain in her esophagus as well as the cramping in her abdomen. Discharged home. - Vital Signs Vital signs: Temp Pulse Resp BP Pulse Ox 98.2 F 80 16 112/70 100 07/07/18 03:56 07/07/18 03:56 07/07/18 03:56 07/07/18 03:56 07/07/18 03:56 - Laboratory Result Diagrams: 07/07/18 01:40 07/07/18 01:40 Laboratory results interpreted by me: 07/07/18 01:57 Ur Leukocyte Esterase LARGE H Urine Ascorbic Acid 40 H Discharge - Discharge Clinical Impression: Nausea Diarrhea Qualifiers: Diarrhea type: unspecified type Qualified Code(s): R19.7 - Diarrhea, unspecified Condition: Stable Disposition: HOME, SELF-CARE Additional Instructions: Diarrhea Diarrhea means frequent, watery stools. There are many causes. Any problem that keeps the intestinal tract from absorbing water from the stool can lead to diarrhea. A sudden new diarrhea problem is usually caused by a virus, food sensitivity, toxic bacteria, or drugs. In this case, we expect the problem to go away soon. Testing is done only if you seem seriously ill from the diarrhea. If you have chronic diarrhea, or diarrhea that keeps coming back, we need to find out why. Chronic diarrhea can be due to inflammation of the bowels such as Crohn's disease or ulcerative colitis, food sensitivity such as intolerance to lactose or wheat protein, irritable bowel syndrome, and other problems. If your diarrhea is a significant problem but it's not clear why you have it, we'll refer you to a specialist for further testing. During an episode of diarrhea, drink small amounts (two to six ounces) of clear liquids (soft drinks, sport drinks, herb teas, broth, etc). Take fluids frequently to prevent dehydration. It's usually not a problem to take mild anti- diarrhea medication such as Kaopectate or Pepto-Bismol. As the diarrhea eases, advance to small amounts of bland food (mashed potato, toast) for 24 hours. Call the physician if blood appears in your vomit or stool, if vomiting lasts longer than 24 hours, if the abdominal pain worsens or becomes localized to one area, if you develop high fever, or if you become lightheaded and weak. Abdominal Pain There are many causes of abdominal pain. Pain can mean a serious problem requiring surgery (such as appendicitis). It can also be an innocent problem that goes away on its own (such as a viral infection). Often, time must pass to determine the cause of pain. The physician does not feel that hospitalization is necessary, at present. Things may change within the next 24 hours. Call the doctor or come back for re- examination if any problems occur, such as: (1) Pain that becomes more severe, steady, or becomes concentrated in one specific area. Also, pain that is more severe with movement or coughing. (2) Vomiting that persists or becomes more frequent. (3) Blood in the vomitus, urine, or bowel movements. Blood in the stool may have a tarry or black appearance. (4) Shaking chills or fever greater than 100 degrees F. (5) The abdomen becomes more distended or swollen. (6) Bowel movements cease. (7) Failure to improve as expected. Use the ranitidine to help with the burning in your chest. Use the Bentyl to help with the cramping in your abdomen. Use Imodium as directed on the box [id number] for diarrhea. Prescriptions: Dicyclomine HCl [Bentyl 20 mg Tablet] 20 mg PO QID #40 tablet Ranitidine HCl 75 mg PO BID #20 tablet Scribe Attestation: 07/07/18 04:12 I personally performed the services described in the documentation, reviewed and edited the documentation which was dictated to the scribe in my presence, and it accurately records my words and actions. I personally performed the services described in the documentation, reviewed and edited the documentation which was dictated to the scribe in my presence, and it accurately records my words and actions.
== END 2018-07-07 03:57 | disposition home or self-care (01) ==
LOC: ER 23:07
DX: R11.0 Nausea (principal); R19.7 Diarrhea, unspecified; R10.9 Unspecified abdominal pain; J45.909 Unspecified asthma, uncomplicated
CPT/HCPCS: 99284; 96372; 36415; 87086; 83690; 85025; 81025; 87088; 80053; 81001; J0500; J3490

== ENCOUNTER 2018-08-20 04:45 | Emergency (ER) | payer SELFPAY ==
[2018-08-20 06:03] LABS: ALANINE AMINOTRANSFERASE 28 U/L (9-52); ALBUMIN 3.4 g/dL (3.5-5.0); ALKALINE PHOSPHATASE 59 U/L (38-126); ANION GAP 7 (5-19); ASPARTATE AMINO TRANSFERASE 25 U/L (14-36); BILIRUBIN,DIRECT 0.2 mg/dL (0.0-0.4); BILIRUBIN,TOTAL 0.9 mg/dL (0.2-1.3); BLOOD UREA NITROGEN 2 mg/dL (7-20); CALCIUM 9.2 mg/dL (8.4-10.2); CARBON DIOXIDE 25 mmol/L (22-30); CHLORIDE 106 mmol/L (98-107); GLUCOSE 92 mg/dL (75-110); LIPASE 31.5 U/L (23-300); POTASSIUM 3.5 mmol/L (3.6-5.0); SODIUM 137.7 mmol/L (137-145); TOTAL PROTEIN 6.5 g/dL (6.3-8.2)
[2018-08-20 06:04] LABS: ABSOLUTE EOSINOPHILS # (AUTO) 0.1 10^3/uL (0.0-0.6); ABSOLUTE MONOCYTES (AUTO) 1.1 10^3/uL (0.1-1.4); ABSOLUTE NEUT (AUTO) 3.2 10^3/uL (1.7-8.2); BASOPHILS % (AUTO) 0.5 % (0-2); EOSINOPHILS % (AUTO) 1.8 % (0-6); HEMATOCRIT 38.4 % (36.0-47.0); HEMOGLOBIN 13.7 g/dL (12.0-15.5); LYMPHOCYTES % (AUTO) 39.8 % (13-45); MEAN CORPUSCULAR HEMOGLOBIN 29.6 pg (27.0-33.4); MEAN CORPUSCULAR HGB CONC 35.6 g/dL (32.0-36.0); MEAN CORPUSCULAR VOLUME 83 fl (80-97); MONOCYTES % (AUTO) 15.1 % (3-13); PLATELET COUNT 258 10^3/uL (150-450); RED BLOOD COUNT 4.62 10^6/uL (3.72-5.28); RED CELL DISTRIBUTION WIDTH 13.9 % (11.5-14.0); SEGMENTED NEUTROPHILS % (AUTO) 42.8 % (42-78); TOTAL CELLS COUNTED % (AUTO) 100 %; WHITE BLOOD COUNT 7.4 10^3/uL (4.0-10.5)
[2018-08-20] MEDS ORDERED: ONDANSETRON HCL INJ/PF 4 MG/2 ML SDV IV ONE (06:20)
[2018-08-20] MEDS ORDERED: DICYCLOMINE HCL INJ 20 MG/2 ML AMPULE IM ONE (06:22)
[2018-08-20 06:23] LABS: APPEARANCE,URINE CLEAR; BILIRUBIN,URINE NEGATIVE (NEGATIVE); COLOR,URINE STRAW; GLUCOSE, URINE NEGATIVE (NEGATIVE); KETONES,URINE NEGATIVE (NEGATIVE); LEUKOCYTE ESTERASE,URINE NEGATIVE (NEGATIVE); NITRITE,URINE NEGATIVE (NEGATIVE); PROTEIN,URINE NEGATIVE (NEGATIVE); URINE SPECIFIC GRAVITY 1.005; UROBILINOGEN,URINE NEGATIVE mg/dL (<2.0)
[2018-08-20] MEDS ORDERED: ONDANSETRON 4 MG TAB.RAPDIS ONE (06:25)
[2018-08-20] MEDS ORDERED: ONDANSETRON 4 MG TAB.RAPDIS PO ONE (06:26)
--- NOTE | 2018-08-20 07:54 | RADIOLOGY REPORT (SQ) ---
EXAM DESCRIPTION: U/S ABDOMEN LIMITED W/O DOP COMPLETED DATE/TIME: 08/20/2018 7:04 am REASON FOR STUDY: RUQ, eval gallbladder COMPARISON: KUB 03/29/2016 TECHNIQUE: Dynamic and static grayscale images acquired of the abdomen and recorded on PACS. Additio joelle selected color Doppler and spectral images recorded. LIMITATIONS: Midline bowel gas FINDINGS: PANCREAS: Midline pancreas unremarkable LIVER: No masses. Echotexture normal. LIVER VASCULATURE: Normal directional flow of the main portal vein and hepatic veins. GALLBLADDER: No stones. Normal wall thickness. No pericholecystic fluid. ULTRASOUND-DETECTED BANDA'S SIGN: Negative. INTRAHEPATIC DUCTS AND COMMON DUCT: CBD and intrahepatic ducts normal caliber. No filling defects. INFERIOR VENA CAVA: Normal flow. AORTA: No aneurysm. RIGHT KIDNEY: Normal size. Normal echogenicity. No solid or suspicious masses. No hydronephrosis. No calcifications. PERITONEAL AND RIGHT PLEURAL SPACE: No ascites or effusions. OTHER: No other significant findings. IMPRESSION: NORMAL RIGHT UPPER QUADRANT ULTRASOUND. TECHNICAL DOCUMENTATION: JOB ID: [id number] [employer]- All Rights Reserved Reading location - IP/workstation name: [email or web address]
--- NOTE | 2018-08-20 08:27 | ER Document Report ---
ED General - General Chief Complaint: Abdominal Pain Stated Complaint: STOMACH PAIN Time Seen by Provider: 08/20/18 06:10 Mode of Arrival: Ambulatory Information source: Patient TRAVEL OUTSIDE OF THE [place] IN LAST 30 DAYS: No - HPI Notes: Patient presents to the emergency department for evaluation of upper abdominal pain. She describes it as a tightness. She feels bloated. She states her pain is worsened every time she eats. It does not seem to matter what she is eaten. She states her pain started around the time of her last visit to the ED. She was seen then and started on Bentyl and Zantac. She did not have significant relief. Over the last 3 days her pain has become near constant. She said nausea but no emesis. She states she has had constipation and then diarrhea for the last week. She states her bowel movements are not watery but very loose. She denies any urinary symptoms. No vaginal discharge. Of note she has been taking vitamins. She states she has been on these since her last miscarriage. - Related Data Allergies/Adverse Reactions: No Known Allergies Allergy (Verified 07/06/18 23:11) Past Medical History - General Information source: Patient - Social History Smoking Status: Never Smoker Chew tobacco use (# tins/day): No Frequency of alcohol use: None Drug Abuse: None Family History: Other - Father with asthma Patient has suicidal ideation: No Patient has homicidal ideation: No Pulmonary Medical History: Reports: Hx Asthma Renal/ Medical History: Denies: Hx Peritoneal Dialysis Musculoskeletal Medical History: Reports Hx Arthritis - Immunizations Immunizations up to date: Yes Hx Diphtheria, Pertussis, Tetanus Vaccination: Yes Review of Systems - Review of Systems Constitutional: No symptoms reported EENT: No symptoms reported Cardiovascular: No symptoms reported Respiratory: No symptoms reported Gastrointestinal: See HPI Genitourinary: No symptoms reported Female Genitourinary: No symptoms reported Musculoskeletal: No symptoms reported Skin: No symptoms reported Neurological/Psychological: No symptoms reported Physical Exam - Vital signs Vitals: Temp Pulse Resp BP Pulse Ox 97.9 F 89 17 139/91 H 97 08/20/18 04:55 08/20/18 04:55 08/20/18 04:55 08/20/18 04:55 08/20/18 04:55 - Notes Notes: Vital signs reviewed, please refer to chart. Patient is normocephalic, atraumatic. Pupils equal round, reactive to light. Neck is supple without meningismus. Heart is regular rate and rhythm. Lungs are clear to auscultation bilaterally. Abdomen is soft, moderate right upper quadrant tenderness without rebound or guarding, normoactive bowel sounds throughout. Extremities without cyanosis, clubbing, edema. Peripheral pulses are equal. Skin is warm and dry. Patient is awake, alert, neurological exam is nonfocal. Course - Re-evaluation Re-evalutation: 08/20/18 08:43 Patient presents to the emergency department for evaluation of upper abdominal pain. Differential diagnosis includes gastritis, peptic ulcer, duodenal ulcer, pancreatitis, cholecystitis, cholelithiasis, biliary colic. She has no fevers. She has no white count. Her laboratory investigations are largely unremarkable. I did order an right upper quadrant ultrasound. This was found to be unremarkable. I do still suspect biliary colic. The patient is treated here with significant relief. I will send her home with more nausea medication. We will also step her up to a PPI. I discussed a food diary, and the need for further evaluation. She is to follow-up with primary care and should seek out referral to gastroenterology should her symptoms persist. She voiced understand ing to this. If she develops worsening or new concerning symptoms of any sort, she is to return emergently to the emergency department for evaluation. - Vital Signs Vital signs: Temp Pulse Resp BP Pulse Ox 97.9 F 89 17 139/91 H 97 08/20/18 04:55 08/20/18 04:55 08/20/18 04:55 08/20/18 04:55 08/20/18 04:55 - Laboratory Result Diagrams: 08/20/18 05:30 08/20/18 05:30 Laboratory results interpreted by me: 08/20/18 08/20/18 05:30 05:30 Monocytes % 15.1 H Potassium 3.5 L BUN 2 L Albumin 3.4 L Discharge - Discharge Clinical Impression: Upper abdominal pain Condition: Stable Disposition: HOME, SELF-CARE Instructions: Abdominal Pain ([facility]), Antinausea Medication ([facility]), Gallbladder Disease ([facility]) Additional Instructions: The cause of your abdominal pain remains unclear. Avoid fatty and greasy foods. Keep a food diary as discussed. Stop the Zantac and start the medications prescribed here today. Zofran as needed for nausea. Stay well-hydrated. Follow-up with primary care next week. He may need further evaluation with a HIDA scan and/or EGD. Return to the emergency department with worsening or new concerning symptoms.
[2018-08-20 09:01] VITALS: BP 129/85
== END 2018-08-20 08:59 | disposition home or self-care (01) ==
LOC: ER 04:45
DX: R10.10 Upper abdominal pain, unspecified (principal)
CPT/HCPCS: 99284; 96372; 36415; 83690; 85025; 81025; 80053; 81001; 76705; J0500; S0119

== ENCOUNTER 2018-09-06 11:19 | Day surgery (SDC) | payer SELFPAY ==
[2018-09-06] MEDS ORDERED: ONDANSETRON HCL INJ/PF 4 MG/2 ML SDV ONE (11:55)
[2018-09-06] MEDS ORDERED: DIPHENHYDRAMINE HCL 50 MG/ML VIAL ONE (11:55)
[2018-09-06] MEDS ORDERED: EPINEPHRINE INJ 1 MG/10 ML DISP.SYRIN ONE (11:56)
[2018-09-06] MEDS ORDERED: GLUCAGON,HUMAN RECOMB 1 MG INJ ONE (11:56)
[2018-09-06] MEDS ORDERED: NALOXONE HCL INJ/PF 0.4 MG/1 ML SDV ONE (11:56)
[2018-09-06] MEDS ORDERED: FLUMAZENIL INJ 0.5 MG/5 ML VIAL ONE (11:56)
[2018-09-06] MEDS: MIDAZOLAM 2 MG/2 ML INJ ONE ×2 (12:15→12:19)
[2018-09-06] MEDS: FENTANYL CITRATE INJ/PF 100 MCG/2 ML AMPUL ONE ×2 (12:17→12:21)
--- NOTE | 2018-09-06 13:46 | Operative Report ---
Operative Report DATE OF SURGERY: 09/06/18 Operative Report: The risks benefits and alternatives of the procedure explained to the patient in detail and informed consent is obtained.A GIF Olympus video scope was inserted into the patient's mouth and hypopharynx, the esophagus is identified intubated and insufflated, the scope was then advanced through the esophagus stomach and duodenum, retroflexion maneuver is done, the esophagus stomach and first and second portions of the duodenum examined. PREOPERATIVE DIAGNOSIS: Abdominal pain POSTOPERATIVE DIAGNOSIS: Gastritis status post biopsy rule out Helicobacter pylori OPERATION: EGD with biopsy SURGEON: MIGUE DOVE ANESTHESIA: Moderate Sedation - 4 mg of Versed, 75 mcg of fentanyl. Conscious sedation monitoring time 30 minutes. TISSUE REMOVED OR ALTERED: As noted above. COMPLICATIONS: none ESTIMATED BLOOD LOSS: none INTRAOPERATIVE FINDINGS: As noted above PROCEDURE: Patient tolerated the procedure well. No immediate postprocedure complications are noted. Patient discharged in good condition. Discharge date 09/06/2018. Discharge diet: Regular. Discharge activity: Regular. 2-3-week follow-up to discuss findings. Patient is instructed to call the office or proceed to the emergency room should there be any further problems or questions. Wait on the pathology.
[2018-09-06 15:06] VITALS: BP 136/87
== END 2018-09-06 13:40 | disposition home or self-care (01) ==
LOC: END 11:19
PROVIDERS: ATTEND Internal Medicine Gastroenterology
DX: K29.50 Unspecified chronic gastritis without bleeding (principal); J45.909 Unspecified asthma, uncomplicated
CPT/HCPCS: 43239; 88342 ×2; 88305 ×2; J2250; J3010; J0171; J1200; J1610; J2310; J2405; J3490

== ENCOUNTER 2018-10-09 19:02 | Emergency (ER) | payer SELFPAY ==
--- NOTE | 2018-10-09 19:25 | ER Document Report ---
ED Medical Screen (RME) - General Chief Complaint: Abdominal Pain Stated Complaint: VAGINAL ISSUE Time Seen by Provider: 10/09/18 19:20 Mode of Arrival: Ambulatory Information source: Patient Notes: Patient presents emergency department with complaints of right lower quadrant abdominal pain. Also reports vaginal itching and bleeding. Pain with void. Patient reports she was here 2 weeks ago with the same symptoms and treated with Flagyl and doxy. Patient reports Flagyl made her sick so she quit taking it she did finish all the Doxy. Denies other symptoms such as fever and vomiting di arrhea. I have greeted and performed a rapid initial assessment of this patient. A comprehensive ED assessment and evaluation of the patient, analysis of test results and completion of the medical decision making process will be conducted by additional ED providers. Dictation of this chart was performed using voice recognition software; therefore, there may be some unintended grammatical errors. TRAVEL OUTSIDE OF THE [place] IN LAST 30 DAYS: No - Related Data Allergies/Adverse Reactions: No Known Allergies Allergy (Verified 10/09/18 19:04) Past Medical History - Past Medical History Cardiac Medical History: Denies: Hx Coronary Artery Disease, Hx Heart Attack, Hx Hypertension Pulmonary Medical History: Reports: Hx Asthma Denies: Hx Bronchitis, Hx COPD, Hx Pneumonia Neurological Medical History: Denies: Hx Cerebrovascular Accident, Hx Seizures Renal/ Medical History: Denies: Hx Peritoneal Dialysis Musculoskeltal Medical History: Denies Hx Arthritis Past Surgical History: Denies: Hx Hysterectomy - Immunizations Immunizations up to date: Yes Hx Diphtheria, Pertussis, Tetanus Vaccination: Yes Physical Exam - Vital signs Vitals: Temp Pulse Resp BP Pulse Ox 98.2 F 88 16 122/76 99 10/09/18 19:08 10/09/18 19:08 10/09/18 19:08 10/09/18 19:08 10/09/18 19:08 Course - Vital Signs Vital signs: Temp Pulse Resp BP Pulse Ox 98.2 F 88 16 122/76 99 10/09/18 19:08 10/09/18 19:08 10/09/18 19:08 10/09/18 19:08 10/09/18 19:08
[2018-10-09 20:02] LABS: ABSOLUTE BASOPHILS # (AUTO) 0.1 10^3/uL (0.0-0.2); ABSOLUTE EOSINOPHILS # (AUTO) 0.1 10^3/uL (0.0-0.6); ABSOLUTE MONOCYTES (AUTO) 0.7 10^3/uL (0.1-1.4); BASOPHILS % (AUTO) 0.9 % (0-2); EOSINOPHILS % (AUTO) 1.9 % (0-6); TOTAL CELLS COUNTED % (AUTO) 100 %
[2018-10-09 20:10] LABS: ABSOLUTE LYMPHOCYTES (AUTO) 2.9 10^3/uL (0.5-4.7); ABSOLUTE NEUT (AUTO) 3.4 10^3/uL (1.7-8.2); HEMATOCRIT 39.2 % (36.0-47.0); HEMOGLOBIN 13.4 g/dL (12.0-15.5); LYMPHOCYTES % (AUTO) 39.8 % (13-45); MEAN CORPUSCULAR HEMOGLOBIN 28.7 pg (27.0-33.4); MEAN CORPUSCULAR HGB CONC 34.3 g/dL (32.0-36.0); MEAN CORPUSCULAR VOLUME 84 fl (80-97); MONOCYTES % (AUTO) 9.9 % (3-13); PLATELET COUNT 266 10^3/uL (150-450); RED BLOOD COUNT 4.69 10^6/uL (3.72-5.28); RED CELL DISTRIBUTION WIDTH 13.1 % (11.5-14.0); SEGMENTED NEUTROPHILS % (AUTO) 47.5 % (42-78); WHITE BLOOD COUNT 7.2 10^3/uL (4.0-10.5)
[2018-10-09 20:11] LABS: APPEARANCE,URINE SLIGHTLY-CLOUDY; BILIRUBIN,URINE NEGATIVE (NEGATIVE); COLOR,URINE YELLOW; GLUCOSE, URINE NEGATIVE (NEGATIVE); KETONES,URINE NEGATIVE (NEGATIVE); LEUKOCYTE ESTERASE,URINE NEGATIVE (NEGATIVE); NITRITE,URINE NEGATIVE (NEGATIVE); PROTEIN,URINE NEGATIVE (NEGATIVE); URINE SPECIFIC GRAVITY 1.016; UROBILINOGEN,URINE NEGATIVE mg/dL (<2.0)
[2018-10-09 20:17] LABS: ALANINE AMINOTRANSFERASE 19 U/L (9-52); ALKALINE PHOSPHATASE 57 U/L (38-126); ANION GAP 11 (5-19); ASPARTATE AMINO TRANSFERASE 20 U/L (14-36); BILIRUBIN,DIRECT 0.3 mg/dL (0.0-0.4); BILIRUBIN,TOTAL 0.4 mg/dL (0.2-1.3); BLOOD UREA NITROGEN 8 mg/dL (7-20); CALCIUM 9.4 mg/dL (8.4-10.2); CARBON DIOXIDE 27 mmol/L (22-30); CHLORIDE 104 mmol/L (98-107); GLUCOSE 106 mg/dL (75-110); POTASSIUM 3.3 mmol/L (3.6-5.0); SODIUM 142.1 mmol/L (137-145); TOTAL PROTEIN 7.2 g/dL (6.3-8.2)
--- NOTE | 2018-10-09 21:18 | ER Document Report ---
ED General - General Chief Complaint: Abdominal Pain Stated Complaint: VAGINAL ISSUE Time Seen by Provider: 10/09/18 19:20 Primary Care Provider: [facility] [Provider Group] - Follow up in 1 week Mode of Arrival: Ambulatory Notes: Patient is a 32-year-old female who presents emergency department with a chief complaint of right sided abdominal pain, vaginal itching, and abnormal bleeding. She states that she has never had problems with irregular menstrual cycles in the past, but is now having 2 menstrual cycles a month. Her last menstrual cycle was October 03. She also was seen about 2 weeks ago for a trichomonas infection and a bacterial vaginosis infection. She was negative for gonorrhea and chlamydia. She states that she was able to finish her doxycycline, but was not able to finish her Flagyl because it made her stomach feel sick. She states that her was treated, but they continue to have sex during the time that she was on antibiotics. She denies any vomiting or diarrhea. She does admit to some nausea. Past medical history includes sickle cell trait and asthma. TRAVEL OUTSIDE OF THE [place] IN LAST 30 DAYS: No - Related Data Allergies/Adverse Reactions: No Known Allergies Allergy (Verified 10/09/18 19:04) Past Medical History - General Information source: Patient - Social History Smoking Status: Never Smoker Chew tobacco use (# tins/day): No Frequency of alcohol use: None Drug Abuse: None Family History: Other - Father with asthma Patient has suicidal ideation: No Patient has homicidal ideation: No - Past Medical History Cardiac Medical History: Denies: Hx Coronary Artery Disease, Hx Heart Attack, Hx Hypertension Pulmonary Medical History: Reports: Hx Asthma Denies: Hx Bronchitis, Hx COPD, Hx Pneumonia Neurological Medical History: Denies: Hx Cerebrovascular Accident, Hx Seizures Renal/ Medical History: Denies: Hx Peritoneal Dialysis Musculoskeletal Medical History: Denies Hx Arthritis Past Surgical History: Denies: Hx Hysterectomy - Immunizations Immunizations up to date: Yes Hx Diphtheria, Pertussis, Tetanus Vaccination: Yes Review of Systems - Review of Systems Notes: REVIEW OF SYSTEMS: CONSTITUTIONAL : See HPI EENT: Denies eye, ear, throat, or mouth pain, discharge, or symptoms. Denies nasal or sinus congestion. CARDIOVASCULAR: Denies chest pain. RESPIRATORY: Denies shortness of breath, cough, congestion, difficulty breathing, or wheezing. GASTROINTESTINAL: Denies nausea, vomiting, and diarrhea. Denies abdominal pain. Denies constipation. Last BM: GENITOURINARY: Denies difficulty urinating, burning, blood in urine, urgency or frequency. FEMALE GENITOURINARY: See HPI MUSCULOSKELETAL: Denies neck and back pain. Denies joint pain or swelling. SKIN: Denies rash, itchiness, or lesions HEMATOLOGIC : Denies easy bruising or bleeding. LYMPHATIC: Denies swollen, painful, enlarged glands. NEUROLOGICAL: Denies no numbness or tingling denies weakness. Denies headache. Denies altered mental status. Denies alteration in speech. PSYCHIATRIC: Denies stress, anxiety, alteration in sleep patterns, or depression. All other systems reviewed and negative. Physical Exam - Vital signs Vitals: Temp Pulse Resp BP Pulse Ox 98.2 F 88 16 122/76 99 10/09/18 19:08 10/09/18 19:08 10/09/18 19:08 10/09/18 19:08 10/09/18 19:08 - Notes Notes: PHYSICAL EXAMINATION: GENERAL: Appears well, healthy, well-nourished, no acute distress. HEAD: Normocephalic, atraumatic. EYES: PERRL, conjunctiva normal, all extraocular movements intact, sclera nonic teric ENT: Moist mucous membranes. NECK: Supple, no noticeable swelling, redness, rash. Normal range of motion. LUNGS: Equal breath sounds bilaterally and clear to auscultation. No wheezes rales or rhonchi. CARDIOVASCULAR: S1-S2, regular rate, regular rhythm. Radial pulses 2+, normal. ABDOMEN: Normoactive bowel sounds. Soft, nontender, no guarding, no rebound tenderness, and no masses palpated. EXTREMITIES: Normal strength and range of motion, no pitting or edema. No cyanosis. NEUROLOGICAL: Moves all extremities upon command. Strength 5/5 in all extremities. PSYCH: Normal mood, normal affect. SKIN: Warm, dry. No rash, lesions, ulcerations noted. Normal skin turgor. LOG HOOKER: No cervical motion tenderness noted. White/yellow discharge noted on pelvic exam. Patient very tender during entire exam. Course - Re-evaluation Re-evalutation: 10/10/18 Pelvic exam done with NEO Luong at bedside. Patient's transvaginal ultrasound is negative for for any abscesses at this time. Her chemistry and CBC are unrema rkable. Her urinalysis is normal. She does have 4+ epithelials and 4+ bacteria noted on her wet mount. Her trichomoniasis is gone. Patient did not necessarily feel outpatient therapy, as she did not finish all of her Flagyl. I suspect the patient continued to have her symptoms because she continued to have sex without finishing her medication. I have given her strict instructions to not have sex until her medication is done. She will be given transvaginal clindamycin because her Keflex makes her "not feel well." She is in agreement with this plan. Verbal discharge instructions were given to the patient. They verbalized understanding. They are stable for discharge. - Vital Signs Vital signs: Temp Pulse Resp BP Pulse Ox 98.2 F 86 17 125/83 99 10/10/18 02:25 10/10/18 02:25 10/10/18 02:25 10/10/18 02:25 10/10/18 02:25 - Laboratory Result Diagrams: 10/09/18 19:44 10/09/18 19:44 Laboratory results interpreted by me: 10/09/18 19:44 Potassium 3.3 L Discharge - Discharge Clinical Impression: Pelvic inflammatory disease, Bacterial vaginosis, Irregular menses Condition: Stable Disposition: HOME, SELF-CARE Additional Instructions: You were here in the emergency department for abdominal pain. You have an ovarian cyst. Please follow-up with PATIENT APPOINTMENT COORDINATOR in regards to your irregular menstrual cycle. You are also being treated for bacterial vaginosis. Please use the antibiotic as prescribed. The antibiotic is in your vagina. Please make sure you finish all your antibiotic. Prescriptions: Clindamycin Phosphate [Cleocin 100 mg Vaginal Suppository] 100 mg VG DAILY 7 Days #7 supp.vag Referrals: [facility] [Provider Group] - Follow up in 1 week
[2018-10-09 22:02] LABS: BACTERIA (WET MOUNT) 4+ BACTERIA SEEN; EPITHELIALS (WET MOUNT) 4+ EPITHELIALS SEEN; RBCS (WET MOUNT) NO RBCS SEEN; T.VAGINALIS (WET MOUNT) NO TRICHOMONAS SEEN; WBCS (WET MOUNT) 2+ WBCS SEEN; YEAST (WET MOUNT) NO YEAST SEEN
[2018-10-09 23:25] LABS: CHLAM PCR NOT DETECTED (NOT DETECT); GON PCR NOT DETECTED (NOT DETECT)
--- NOTE | 2018-10-10 01:41 | RADIOLOGY REPORT (SQ) ---
US PELVIS HISTORY: Pelvic pain. COMPARISON: None. TECHNIQUE: Grayscale, color Doppler, and spectral Doppler ultrasound images of the pelvis were obtained. FINDINGS: The uterus is anteverted and measures 10.2 x 4.7 x 6.6 cm. The endometrium is 1.2 cm in thickness. Both ovaries are normal in size and contain normal follicles, with the right measuring 2.5 x 2.3 x 2.0 cm and the left measuring 4.1 x 1.6 x 4.1 cm. There is a 2.2 x 1.5 x 1.2 cm anechoic cyst in the left ovary. Normal color Doppler blood flow is seen in both ovaries. IMPRESSION: 2.2 cm simple left ovarian cyst. No follow-up imaging is recommended. Reference: Radiology 2010 Sep;256(1):943-46
[2018-10-10 02:26] VITALS: BP 125/83
== END 2018-10-10 02:26 | disposition home or self-care (01) ==
LOC: ER 19:02
DX: N73.9 Female pelvic inflammatory disease, unspecified (principal); N76.0 Acute vaginitis; B96.89 Other specified bacterial agents as the cause of diseases classified elsewhere; T36.4X6A Underdosing of tetracyclines, initial encounter; Z91.128 Patient's intentional underdosing of medication regimen for other reason; Z91.14 Patient's other noncompliance with medication regimen; N92.6 Irregular menstruation, unspecified; R11.0 Nausea; J45.909 Unspecified asthma, uncomplicated
CPT/HCPCS: 36415; 76830; 80053; 81001; 81025; 85025; 87210; 87491; 87591; 93976; 99284

== ENCOUNTER 2019-05-09 09:17 | Emergency (ER) | payer SELFPAY ==
--- NOTE | 2019-05-09 10:52 | ER Document Report ---
ED Medical Screen (RME) - General Chief Complaint: Vaginal Discharge Stated Complaint: VAGINAL PROBLEM/HEADACHE Time Seen by Provider: 05/09/19 10:40 TRAVEL OUTSIDE OF THE [place] IN LAST 30 DAYS: No - HPI Notes: 05/09/19 10:49 33-year-old female 2 para 4 presents to the emergency room for complaints of pelvic pain that started yesterday with fevers, chills and nausea due that started approximately 3 days ago. Patient reports she has foul vaginal discharge as well patient states she is not sure she is , last menstrual period was April 13, 2018. Patient reports lower back pain, patient states pelvic pain is become progressive. Patient did not get a flu shot but does not present with a fever today. No lott-muv-plrsyan medications have been tried. Denies any chest pain shortness of breath I have greeted and performed a rapid initial assessment of this patient. A comprehensive ED assessment and evaluation of the patient, analysis of test results and completion of the medical decision making process will be conducted by additional ED providers. PHYSICAL EXAMINATION: GENERAL: Well-appearing, well-nourished and in no acute distress. HEAD: Atraumatic, normocephalic. EYES: Pupils equal round extraocular movements intact, conjunctiva are normal. ENT: Nares patent NECK: Normal range of motion LUNGS: No respiratory distress Musculoskeletal: Normal range of motion abd: Lower abdominal pain on palpation. No CVA tenderness bilaterally NEUROLOGICAL: Normal speech, normal gait. PSYCH: Normal mood, normal affect. SKIN: Warm, Dry, normal turgor, no rashes or lesions noted. - Related Data Allergies/Adverse Reactions: No Known Allergies Allergy (Verified 05/09/19 10:35) Past Medical History - Past Medical History Cardiac Medical History: Denies: Hx Coronary Artery Disease, Hx Heart Attack, Hx Hypertension Pulmonary Medical History: Reports: Hx Asthma Denies: Hx Bronchitis, Hx COPD, Hx Pneumonia Neurological Medical History: Denies: Hx Cerebrovascular Accident, Hx Seizures Renal/ Medical History: Denies: Hx Peritoneal Dialysis Musculoskeltal Medical History: Denies Hx Arthritis Past Surgical History: Denies: Hx Hysterectomy - Immunizations Immunizations up to date: Yes Hx Diphtheria, Pertussis, Tetanus Vaccination: Yes Physical Exam - Vital signs Vitals: Temp Pulse Resp BP Pulse Ox 98.3 F 89 17 122/82 97 05/09/19 09:32 05/09/19 09:32 05/09/19 09:32 05/09/19 09:32 05/09/19 09:32 Course - Vital Signs Vital signs: Temp Pulse Resp BP Pulse Ox 98.3 F 89 17 122/82 97 05/09/19 09:32 05/09/19 09:32 05/09/19 09:32 05/09/19 09:32 05/09/19 09:32
[2019-05-09 11:26] LABS: ABSOLUTE BASOPHILS # (AUTO) 0.1 10^3/uL (0.0-0.2); ABSOLUTE EOSINOPHILS # (AUTO) 0.1 10^3/uL (0.0-0.6); ABSOLUTE LYMPHOCYTES (AUTO) 2.7 10^3/uL (0.5-4.7); ABSOLUTE MONOCYTES (AUTO) 0.8 10^3/uL (0.1-1.4); ABSOLUTE NEUT (AUTO) 4.1 10^3/uL (1.7-8.2); EOSINOPHILS % (AUTO) 0.9 % (0-6); HEMATOCRIT 41.9 % (36.0-47.0); HEMOGLOBIN 14.6 g/dL (12.0-15.5); LYMPHOCYTES % (AUTO) 34.6 % (13-45); MEAN CORPUSCULAR HEMOGLOBIN 29.3 pg (27.0-33.4); MEAN CORPUSCULAR HGB CONC 34.9 g/dL (32.0-36.0); MEAN CORPUSCULAR VOLUME 84 fl (80-97); MONOCYTES % (AUTO) 10.6 % (3-13); PLATELET COUNT 239 10^3/uL (150-450); RED BLOOD COUNT 4.99 10^6/uL (3.72-5.28); RED CELL DISTRIBUTION WIDTH 13.9 % (11.5-14.0); SEGMENTED NEUTROPHILS % (AUTO) 52.9 % (42-78); TOTAL CELLS COUNTED % (AUTO) 100 %; WHITE BLOOD COUNT 7.7 10^3/uL (4.0-10.5)
[2019-05-09 11:31] LABS: APPEARANCE,URINE SLIGHTLY-CLOUDY; BILIRUBIN,URINE NEGATIVE (NEGATIVE); COLOR,URINE YELLOW; GLUCOSE, URINE NEGATIVE (NEGATIVE); KETONES,URINE NEGATIVE (NEGATIVE); LEUKOCYTE ESTERASE,URINE NEGATIVE (NEGATIVE); NITRITE,URINE NEGATIVE (NEGATIVE); PROTEIN,URINE NEGATIVE (NEGATIVE); URINE SPECIFIC GRAVITY 1.012; UROBILINOGEN,URINE NEGATIVE mg/dL (<2.0)
[2019-05-09 11:41] LABS: A TYPE INFLUENZA AG NEGATIVE (NEGATIVE); B INFLUENZA AG NEGATIVE (NEGATIVE)
[2019-05-09 11:45] LABS: ALKALINE PHOSPHATASE 57 U/L (38-126); ANION GAP 10 (5-19); ASPARTATE AMINO TRANSFERASE 20 U/L (14-36); BILIRUBIN,DIRECT 0.1 mg/dL (0.0-0.4); BILIRUBIN,TOTAL 0.7 mg/dL (0.2-1.3); BLOOD UREA NITROGEN 4 mg/dL (7-20); CALCIUM 9.7 mg/dL (8.4-10.2); CARBON DIOXIDE 28 mmol/L (22-30); CHLORIDE 102 mmol/L (98-107); GLUCOSE 100 mg/dL (75-110); POTASSIUM 3.5 mmol/L (3.6-5.0); TOTAL PROTEIN 7.5 g/dL (6.3-8.2)
--- NOTE | 2019-05-09 13:19 | ER Document Report ---
ED GI/ - General Chief Complaint: Vaginal Discharge Stated Complaint: VAGINAL PROBLEM/HEADACHE Time Seen by Provider: 05/09/19 10:40 Notes: Ms. Fajardo is a 33-year-old G4, P2 presenting to the ED department with complaints of vaginal discharge. Patient states that she is also had some nausea, subjective fevers and chills. Patient states this all began approximately 3 days ago. The vaginal discharge is foul-smelling in nature and patient is curious if she is today. She states her LMP was 04/13. Patient states she has had STIs previously but does not recall which one. Last one was 6 or 7 months ago. She states that Flagyl does make her quite nauseated. Patient denies getting a flu shot earlier today but states she feels like that she is febrile today. She denies using any medication at home. Patient denies any cough, chest pain, shortness of breath, or abdominal pain. She denies any vomiting or diarrhea. TRAVEL OUTSIDE OF THE [place] IN LAST 30 DAYS: No - Related Data Allergies/Adverse Reactions: No Known Allergies Allergy (Verified 05/09/19 10:35) Past Medical History - General Last Menstrual Period: 04/13/19 - Social History Smoking Status: Never Smoker Family History: Other - Father with asthma Patient has suicidal ideation: No Patient has homicidal ideation: No - Past Medical History Cardiac Medical History: Denies: Hx Coronary Artery Disease, Hx Heart Attack, Hx Hypertension Pulmonary Medical History: Reports: Hx Asthma Denies: Hx Bronchitis, Hx COPD, Hx Pneumonia Neurological Medical History: Denies: Hx Cerebrovascular Accident, Hx Seizures Renal/ Medical History: Denies: Hx Peritoneal Dialysis Musculoskeletal Medical History: Denies Hx Arthritis Past Surgical History: Denies: Hx Hysterectomy - Immunizations Immunizations up to date: Yes Hx Diphtheria, Pertussis, Tetanus Vaccination: Yes Review of Systems - Review of Systems Constitutional: See HPI EENT: No symptoms reported Cardiovascular: No symptoms reported Respiratory: No symptoms reported Gastrointestinal: See HPI Genitourinary: See HPI Female Genitourinary: See HPI Musculoskeletal: No symptoms reported Skin: No symptoms reported Hematologic/Lymphatic: No symptoms reported Neurological/Psychological: No symptoms reported Physical Exam - Vital signs Vitals: Temp Pulse Resp BP Pulse Ox 98.3 F 89 17 122/82 97 05/09/19 09:32 05/09/19 09:32 05/09/19 09:32 05/09/19 09:32 05/09/19 09:32 Interpretation: Normal - General General appearance: Appears well, Alert - HEENT Head: Normocephalic, Atraumatic Eyes: Normal Pupils: PERRL - Respiratory Respiratory status: No respiratory distress Chest status: Nontender Breath sounds: Normal Chest palpation: Normal - Cardiovascular Rhythm: Regular Heart sounds: Normal auscultation Murmur: No - Abdominal Inspection: Normal Distension: No distension Bowel sounds: Normal Tenderness: Nontender Organomegaly: No organomegaly - Genitourinary External exam: Normal Speculum exam: Cervix closed, Vaginal discharge - Thick white/yellow discharge Vaginal bleeding: None Bimanuel exam: Cervical motion tender - Back Back: Normal, Nontender - Extremities General upper extremity: Normal inspection, Nontender, Normal color, Normal ROM, Normal temperature General lower extremity: Normal inspection, Nontender, Normal color, Normal ROM, Normal temperature, Normal weight bearing. No: Yumiko's sign - Neurological Neuro grossly intact: Yes Cognition: Normal Orientation: AAOx4 [place] Coma Scale Eye Opening: Spontaneous [place] Coma Scale Verbal: Oriented [place] Coma Scale Motor: Obeys Commands [place] Coma Scale Total: 15 Speech: Normal Motor strength normal: LUE, RUE, LLE, RLE Sensory: Normal - Psychological Associated symptoms: Normal affect, Normal mood - Skin Skin Temperature: Warm Skin Moisture: Dry Skin Color: Normal Course - Re-evaluation Re-evalutation: She is generally well-appearing and nontoxic. Initial vitals within normal limits. Differential diagnosis includes UTI, URI, influenza, PID, STI, yeast infection, BV CBC and CMP within normal limits. UA is negative for evidence of infection and urine is also negative. Influenza a and B are unremarkable. 05/09/19 13:31 Given that the patient had CMT as well as discharge on examination. Although swabs were obtained, will treat empirically with ceftriaxone and is a throat. Will await results of wet mount to assess if the patient also needs Diflucan or Flagyl for candidiasis/BV as needed. 05/09/19 15:00 Patient had an ultrasound which was notable for small bilateral ovarian cysts. Otherwise unremarkable. 05/09/19 15:01 Wet prep does not show evidence of trichomonas or yeast. Patient already treated for gonorrhea and chlamydia empirically. Will discharge with recommendations to follow-up with her primary care doctor and not be sexually active until her results return. Patient also recommended to have all her partners tested. Patient given return precautions. - Vital Signs Vital signs: Temp Pulse Resp BP Pulse Ox 98.3 F 89 17 122/82 97 05/09/19 09:32 05/09/19 09:32 05/09/19 09:32 05/09/19 09:32 05/09/19 09:32 - Laboratory Result Diagrams: 05/09/19 11:00 05/09/19 11:00 Laboratory results interpreted by me: 05/09/19 11:00 Potassium 3.5 L BUN 4 L Discharge - Discharge Clinical Impression: Vaginal discharge Condition: Good Disposition: HOME, SELF-CARE Instructions: Vaginitis ([facility]), Myalagia (Muscle Pain) ([facility]) Additional Instructions: I would recommend that you stay well-hydrated with plenty of fluids and use Tylenol or Motrin as needed for your body aches. I would also recommend that you do not have any sexual activity until you get the results of your gonorrhea chlamydia which will be called if positive. You have already been treated today. It is important that you have all your sexual partners tested.
[2019-05-09] MEDS ORDERED: CEFTRIAXONE INJ 250 MG VIAL IM ONE (13:20)
[2019-05-09] MEDS ORDERED: AZITHROMYCIN 250 MG TABLET PO ONE (13:20)
[2019-05-09 13:30] LABS: BACTERIA (WET MOUNT) 4+ BACTERIA SEEN; EPITHELIALS (WET MOUNT) 4+ EPITHELIALS SEEN; T.VAGINALIS (WET MOUNT) NO TRICHOMONAS SEEN; WBCS (WET MOUNT) 3+ WBCS SEEN; YEAST (WET MOUNT) NO YEAST SEEN
--- NOTE | 2019-05-09 14:30 | RADIOLOGY REPORT (SQ) ---
EXAM DESCRIPTION: U/S NON OB PEL TV W/DOPPLER COMPLETED DATE/TIME: 05/09/2019 2:21 pm REASON FOR STUDY: pelvic pain, vaginal pain COMPARISON: None. TECHNIQUE: Dynamic and static grayscale images acquired of the pelvis via transvaginal approach and recorded on PACS. Additional selected color Doppler and spectral images recorded. LIMITATIONS: None. FINDINGS: UTERUS: Contour normal. No mass. ENDOMETRIAL STRIPE: No focal or generalized thickening. No masses. CERVIX: There is a small nabothian cyst. RIGHT OVARY AND DOPPLER: Normal size. No worrisome masses. Normal arterial vascular flow without evid ence for torsion. There is a 1.8 cm cyst. LEFT OVARY AND DOPPLER: Normal size. No worrisome masses. Normal arterial vascular flow without evide nce for torsion. FREE FLUID: None noted. There is a 1.3 cm cyst. OTHER: No other significant finding. MEASUREMENTS: UTERUS: 9.5 x 5.8 x 5.0 cm. ENDOMETRIAL STRIPE: 7.0 mm. RIGHT OVARY: 2.6 x 2.8 x 2.0 cm. LEFT OVARY: 3.5 x 1.5 x 1.9 cm. IMPRESSION: Small bilateral ovarian cysts. No suspicious findings. TECHNICAL DOCUMENTATION: JOB ID: [id number] [employer]- All Rights Reserved Rev Reading location - IP/workstation name: [email or web address]
[2019-05-09] MEDS ORDERED: LIDOCAINE 1% INJ (10 MG/ML) 10 ML MDV INJ ONE (14:34)
[2019-05-09 14:54] LABS: CHLAM PCR NOT DETECTED (NOT DETECT)
[2019-05-09 15:27] VITALS: BP 123/78
== END 2019-05-09 15:27 | disposition home or self-care (01) ==
LOC: ER 09:17
DX: N89.8 Other specified noninflammatory disorders of vagina (principal); R51 Headache
CPT/HCPCS: 36415; 87210; 85025; 81025; 80053; 81001; 87491; 87591; 87804; 76830; 93976; J0696; 96372; 99284

== ENCOUNTER 2019-07-19 11:57 | Emergency (ER) | payer SELFPAY ==
[2019-07-19 12:19] VITALS: BP 136/86
== END 2019-07-19 13:15 | disposition left against medical advice (07) ==
LOC: ER 11:57
DX: Z53.21 Procedure and treatment not carried out due to patient leaving prior to being seen by health care provider (principal); R21 Rash and other nonspecific skin eruption

== ENCOUNTER 2019-07-19 19:55 | Emergency (ER) | payer SELFPAY ==
[2019-07-20 01:59] LABS: APPEARANCE,URINE SLIGHTLY-CLOUDY; BILIRUBIN,URINE NEGATIVE (NEGATIVE); COLOR,URINE STRAW; GLUCOSE, URINE NEGATIVE (NEGATIVE); KETONES,URINE NEGATIVE (NEGATIVE); LEUKOCYTE ESTERASE,URINE NEGATIVE (NEGATIVE); NITRITE,URINE NEGATIVE (NEGATIVE); PROTEIN,URINE NEGATIVE (NEGATIVE); URINE SPECIFIC GRAVITY 1.011; UROBILINOGEN,URINE NEGATIVE mg/dL (<2.0)
[2019-07-20 02:03] LABS: ALBUMIN 4.3 g/dL (3.5-5.0); ALKALINE PHOSPHATASE 63 U/L (38-126); ANION GAP 9 (5-19); ASPARTATE AMINO TRANSFERASE 25 U/L (14-36); BILIRUBIN,TOTAL 0.6 mg/dL (0.2-1.3); BLOOD UREA NITROGEN 10 mg/dL (7-20); CALCIUM 9.1 mg/dL (8.4-10.2); CARBON DIOXIDE 27 mmol/L (22-30); CHLORIDE 103 mmol/L (98-107); GLUCOSE 97 mg/dL (75-110); POTASSIUM 3.8 mmol/L (3.6-5.0); TOTAL PROTEIN 7.7 g/dL (6.3-8.2)
[2019-07-20 02:16] VITALS: BP 143/92
[2019-07-20 02:29] LABS: ABSOLUTE BASOPHILS # (AUTO) 0.1 10^3/uL (0.0-0.2); ABSOLUTE EOSINOPHILS # (AUTO) 0.1 10^3/uL (0.0-0.6); ABSOLUTE LYMPHOCYTES (AUTO) 3.4 10^3/uL (0.5-4.7); ABSOLUTE NEUT (AUTO) 3.6 10^3/uL (1.7-8.2); ABSOLUTE RETICS # 0.064 10^6/uL (0.028-0.122); BASOPHILS % (AUTO) 0.8 % (0-2); EOSINOPHILS % (AUTO) 1.2 % (0-6); HEMATOCRIT 39.7 % (36.0-47.0); HEMOGLOBIN 13.6 g/dL (12.0-15.5); LYMPHOCYTES % (AUTO) 41.2 % (13-45); MEAN CORPUSCULAR HEMOGLOBIN 28.6 pg (27.0-33.4); MEAN CORPUSCULAR HGB CONC 34.2 g/dL (32.0-36.0); MEAN CORPUSCULAR VOLUME 84 fl (80-97); MONOCYTES % (AUTO) 12.5 % (3-13); PLATELET COUNT 262 10^3/uL (150-450); RED BLOOD COUNT 4.76 10^6/uL (3.72-5.28); RED CELL DISTRIBUTION WIDTH 12.7 % (11.5-14.0); RETICULOCYTE COUNT (AUTO) 1.34 % (0.66-2.85); SEGMENTED NEUTROPHILS % (AUTO) 44.3 % (42-78); TOTAL CELLS COUNTED % (AUTO) 100 %; WHITE BLOOD COUNT 8.1 10^3/uL (4.0-10.5)
--- NOTE | 2019-07-20 02:32 | RADIOLOGY REPORT (SQ) ---
EXAM DESCRIPTION: XR CHEST 1 VIEW COMPLETED DATE/TME: 07/20/2019 00:00 CLINICAL HISTORY: 33 years, Female, chest pain, SOB COMPARISON: None. NUMBER OF VIEWS: Single TECHNIQUE: Interval LIMITATIONS: None. FINDINGS: Cardiomediastinal silhouette is normal. Lungs grossly clear. No effusion. No pneumothorax. Visualized bones are unremarkable IMPRESSION: No active intrathoracic disease copyright 2010 [employer]- All Rights Reserved
== END 2019-07-20 04:14 | disposition left against medical advice (07) ==
LOC: ER 19:55
DX: Z53.21 Procedure and treatment not carried out due to patient leaving prior to being seen by health care provider (principal); R21 Rash and other nonspecific skin eruption
CPT/HCPCS: 36415; 71045; 80053; 81001; 84484; 85025; 85045

== ENCOUNTER 2019-07-29 10:55 | Emergency (ER) | payer SELFPAY ==
[2019-07-29] MEDS ORDERED: IPRATROPIUM/ALBUTEROL 0.5-2.5 MG/3 ML AMPUL NEB ONE (11:05)
[2019-07-29] MEDS ORDERED: PREDNISONE 20 MG TABLET PO ONE (11:05)
[2019-07-29] MEDS ORDERED: KETOROLAC TROMETHAMINE INJ/PF 30 MG/1 ML SDV IV ONE (11:05)
--- NOTE | 2019-07-29 11:08 | ER Document Report ---
ED Medical Screen (RME) - General Chief Complaint: Shortness Of Breath Stated Complaint: DIFFICULTY BREATHING Time Seen by Provider: 07/29/19 11:04 Notes: HPI: 33-year-old female with sickle cell trait and asthma history presenting for shortness of breath that began last night. Patient is out of her asthma inhaler. She reports a sensation of feeling like she is unable to take a deep breath in. No fever. Also complaining of back pain and painful respiration. I have greeted and performed a rapid initial assessment of this patient. A comprehensive ED assessment and evaluation of the patient, analysis of test results and completion of the medical decision making process will be conducted by additional ED providers PHYSICAL EXAMINATION: GENERAL: Well-appearing, well-nourished and in mild acute distress. HEAD: Atraumatic, normocephalic. EYES: sclera anicteric, conjunctiva are normal. ENT: Moist mucous membranes. NECK: Normal range of motion LUNGS: Normal work of breathing, no active wheezing noted at this time HEART: 2+ radial pulses bilaterally, regular rate and rhythm ABD: limited by positioning for exam in triage. EXTREMITIES: no pitting or edema. No cyanosis. Back: Mild tenderness across the thoracic and lumbar back on palpation NEUROLOGICAL: No focal neurological deficits. Moves all extremities spontaneously and on command. PSYCH: Normal mood, normal affect. SKIN: Warm, Dry, normal turgor, no rashes or lesions noted. TRAVEL OUTSIDE OF THE [place] IN LAST 30 DAYS: No - Related Data Allergies/Adverse Reactions: No Known Allergies Allergy (Verified 07/29/19 11:01) Past Medical History - Social History Chew tobacco use (# tins/day): No Frequency of alcohol use: None Drug Abuse: None - Past Medical History Cardiac Medical History: Denies: Hx Coronary Artery Disease, Hx Heart Attack, Hx Hypertension Pulmonary Medical History: Reports: Hx Asthma Denies: Hx Bronchitis, Hx COPD, Hx Pneumonia Neurological Medical History: Denies: Hx Cerebrovascular Accident, Hx Seizures Renal/ Medical History: Denies: Hx Peritoneal Dialysis Musculoskeltal Medical History: Denies Hx Arthritis Past Surgical History: Denies: Hx Hysterectomy - Immunizations Immunizations up to date: Yes Hx Diphtheria, Pertussis, Tetanus Vaccination: Yes Physical Exam - Vital signs Vitals: Temp Pulse Resp BP Pulse Ox 98.3 F 69 20 129/79 H 100 07/29/19 11:06 07/29/19 11:06 07/29/19 11:06 07/29/19 11:06 07/29/19 11:06 Course - Vital Signs Vital signs: Temp Pulse Resp BP Pulse Ox 98.3 F 69 20 129/79 H 100 07/29/19 11:06 07/29/19 11:06 07/29/19 11:06 07/29/19 11:06 07/29/19 11:06
[2019-07-29 11:38] LABS: ABSOLUTE EOSINOPHILS # (AUTO) 0.1 10^3/uL (0.0-0.6); ABSOLUTE LYMPHOCYTES (AUTO) 2.4 10^3/uL (0.5-4.7); ABSOLUTE MONOCYTES (AUTO) 0.6 10^3/uL (0.1-1.4); ABSOLUTE NEUT (AUTO) 3.5 10^3/uL (1.7-8.2); BASOPHILS % (AUTO) 0.6 % (0-2); EOSINOPHILS % (AUTO) 1.3 % (0-6); HEMATOCRIT 40.2 % (36.0-47.0); HEMOGLOBIN 14.2 g/dL (12.0-15.5); LYMPHOCYTES % (AUTO) 36.6 % (13-45); MEAN CORPUSCULAR HEMOGLOBIN 29.1 pg (27.0-33.4); MEAN CORPUSCULAR HGB CONC 35.2 g/dL (32.0-36.0); MEAN CORPUSCULAR VOLUME 83 fl (80-97); PLATELET COUNT 282 10^3/uL (150-450); RED BLOOD COUNT 4.86 10^6/uL (3.72-5.28); RED CELL DISTRIBUTION WIDTH 13.2 % (11.5-14.0); SEGMENTED NEUTROPHILS % (AUTO) 52.5 % (42-78); TOTAL CELLS COUNTED % (AUTO) 100 %; WHITE BLOOD COUNT 6.7 10^3/uL (4.0-10.5)
--- NOTE | 2019-07-29 11:51 | RADIOLOGY REPORT (SQ) ---
EXAM DESCRIPTION: CHEST 2 VIEWS COMPLETED DATE/TIME: 07/29/2019 11:33 am REASON FOR STUDY: SOB COMPARISON: 07/20/2019 EXAM PARAMETERS: NUMBER OF VIEWS: two views TECHNIQUE: Digital Frontal and Lateral radiographic views of the chest acquired. RADIATION DOSE: NA LIMITATIONS: none FINDINGS: LUNGS AND PLEURA: No opacities, masses or pneumothorax. No pleural effusion. MEDIASTINUM AND HILAR STRUCTURES: No masses or contour abnormalities. HEART AND VASCULAR STRUCTURES: Heart normal size. No evidence for failure. BONES: No acute findings. HARDWARE: None in the chest. OTHER: No other significant finding. IMPRESSION: NO ACUTE RADIOGRAPHIC FINDING IN THE CHEST. TECHNICAL DOCUMENTATION: JOB ID: [id number] [employer]- All Rights Reserved Reading location - IP/workstation name: [email or web address]
[2019-07-29 11:58] LABS: ALBUMIN 4.1 g/dL (3.5-5.0); ALKALINE PHOSPHATASE 56 U/L (38-126); ANION GAP 6 (5-19); ASPARTATE AMINO TRANSFERASE 22 U/L (14-36); BILIRUBIN,TOTAL 0.8 mg/dL (0.2-1.3); BLOOD UREA NITROGEN 4 mg/dL (7-20); CALCIUM 9.2 mg/dL (8.4-10.2); CARBON DIOXIDE 29 mmol/L (22-30); CHLORIDE 104 mmol/L (98-107); GLUCOSE 116 mg/dL (75-110); POTASSIUM 3.6 mmol/L (3.6-5.0); TOTAL PROTEIN 7.3 g/dL (6.3-8.2)
--- NOTE | 2019-07-29 12:01 | ER Document Report ---
ED Respiratory Problem - General Chief Complaint: Shortness Of Breath Stated Complaint: DIFFICULTY BREATHING Time Seen by Provider: 07/29/19 11:04 Mode of Arrival: Ambulatory Information source: Patient Notes: 33-year-old woman presents to the emergency department with a complaint of shortness of breath with cough and congestion. States that she was cleaning mold at home yesterday and has now developed a productive cough with shortness of breath and tightness. She has a history of sickle cell trait, no history of asthma or COPD. She is not a smoker and has no fever. TRAVEL OUTSIDE OF THE [place] IN LAST 30 DAYS: No - Related Data Allergies/Adverse Reactions: No Known Allergies Allergy (Verified 07/29/19 11:01) Past Medical History - Social History Smoking Status: Never Smoker Chew tobacco use (# tins/day): No Frequency of alcohol use: None Drug Abuse: None Family History: Other - Father with asthma Patient has suicidal ideation: No Patient has homicidal ideation: No - Past Medical History Cardiac Medical History: Denies: Hx Coronary Artery Disease, Hx Heart Attack, Hx Hypertension Pulmonary Medical History: Reports: Hx Asthma Denies: Hx Bronchitis, Hx COPD, Hx Pneumonia Neurological Medical History: Denies: Hx Cerebrovascular Accident, Hx Seizures Renal/ Medical History: Denies: Hx Peritoneal Dialysis Musculoskeletal Medical History: Denies Hx Arthritis Past Surgical History: Denies: Hx Hysterectomy - Immunizations Immunizations up to date: Yes Hx Diphtheria, Pertussis, Tetanus Vaccination: Yes Review of Systems - Review of Systems Notes: Constitutional: Negative for fever. HENT: Negative for sore throat. Eyes: Negative for visual changes. Cardiovascular: Negative for chest pain. Respiratory: + Shortness of breath + cough. Gastrointestinal: Negative for abdominal pain, vomiting or diarrhea. Genitourinary: Negative for dysuria. Musculoskeletal: Negative for back pain. Skin: Negative for rash. Neurological: Negative for headaches, weakness or numbness. 10 point ROS negative except as marked above and in HPI. Physical Exam - Vital signs Vitals: Temp Pulse Resp BP Pulse Ox 98.3 F 69 20 129/79 H 100 07/29/19 11:06 07/29/19 11:06 07/29/19 11:06 07/29/19 11:06 07/29/19 11:06 - Notes Notes: PHYSICAL EXAMINATION: Physical Exam: General: Well-nourished well-developed 33-year-old woman in moderate distress secondary to shortness of breath HEENT: NC/AT, pupils equal round and reactive to light, MM moist,nares clear, oropharynx clear, airway patent Neck: supple, no adenopathy, no masses. Good range of motion Lungs: Coarse breath sounds with bilateral wheezing, + use of accessory muscles of respiration CVS: Regular rate and rhythm no murmur gallop or rub Abdomen: Soft, active, nontender, no masses, no hepatosplenomegaly Ext: No edema, clubbing or cyanosis. Neuro: Alert and responsive, moving all 4 extremities on command, cranial nerves intact, no focal findings Skin: Intact no open lesions, no rash PSYCH: Normal mood, normal affect. Course - Re-evaluation Re-evalutation: 07/29/19 13:08 Patient has improved after nebulizer treatment and oral steroids in the emergency department. She is given an IV dose of ceftriaxone and prescription for antibiotic and steroids for outpatient use. I encouraged the patient to follow-up with her primary care doctor and if her symptoms are worsening she may return to the emergency department for reevaluation. Patient acknowledges understanding of this plan and is in agreement. - Vital Signs Vital signs: Temp Pulse Resp BP Pulse Ox 98.3 F 69 20 129/79 H 100 07/29/19 11:06 07/29/19 11:06 07/29/19 11:06 07/29/19 11:06 07/29/19 11:06 - Laboratory Result Diagrams: 07/29/19 11:20 07/29/19 11:20 Laboratory results interpreted by me: 07/29/19 11:20 BUN 4 L Glucose 116 H I have reviewed laboratory data and used this information for the treatment decisions regarding the patient. - Diagnostic Test Radiology reviewed: Image reviewed, Reports reviewed - Chest x-ray: No acute findings. Discharge - Discharge Clinical Impression: Bronchospasm, Cough Acute bronchitis Qualifiers: Bronchitis organism: unspecified organism Qualified Code(s): J20.9 - Acute bronchitis, unspecified Condition: Good Disposition: HOME, SELF-CARE Instructions: Bronchitis ([facility]) Additional Instructions: Please take the medications as prescribed cefdinir 300 mg twice daily, prednisone 20 mg p.o. twice daily, albuterol inhaler 2 puffs every 4-6 hours as needed for shortness of breath. HOME CARE INSTRUCTIONS & INFORMATION: Thank you for choosing us for your medical needs. We hope you're satisfied with the care you received. After you leave, you must properly care for your problem and, at the same time, observe its progress. Any condition can change. Some illnesses can change rapidly over hours or days. If your condition worsens, return to the Emergency Department or see your physician promptly. ABOUT YOUR X-RAYS AND EKG'S: If you had an EKG or X-rays taken, they have been read by the Emergency Physician. The X-rays and EKG's will also be read by a Radiologist or [employer] Helper within 24 hours. If discrepancies are noted, you will be notified by telephone. Please be certain the ED has a correct telephone number & address where you can be reached. Also, realize that some fractures or abnormalities do not show up on initial X-rays. If your symptoms continue, see your physician. ABOUT YOUR LABORATORY TEST: If you had laboratory tests, the results have been reviewed by the Emergency Physician. Some test results (for example cultures) may not be available for several days. You will be contacted if any test result shows you need additional treatment. Please be certain the ED has a correct telephone number and address where you can be reached. ABOUT YOUR MEDICATIONS: You will receive instructions on how to take your medicine on the prescription label you receive. Additional information may be provided by the Pharmacy. If you have questions afterwards, call the ED for clarification or further instructions. Some prescribed medications may cause drowsiness. Do not perform tasks such as driving a car or operating machinery without consulting your Pharmacist. If you feel you need a refill of pain medication, your condition will need re-evaluation. Please do not call for a refill of any medication. ABOUT YOUR SIGNATURE: Signature of this document acknowledges to followin. Understanding that you received emergency treatment and that you may be released before al medical problems are known or treated. Please be certain the ED has a correct phone number & address where you can be reached. 2. Acknowledgement that you will arrange for follow-up care as recommended. 3. Authorization for the Emergency Physician to provide information to your follow-up Physician in order to maximize your care. AT ANY TIME, IF YOUR SYMPTOMS CHANGE SIGNIFICANTLY OR WORSEN OR YOU DEVELOP NEW SYMPTOMS, RETURN TO THE EMERGENCY DEPARTMENT IMMEDIATELY FOR RE-EVALUATION. OUR GOAL IS TO PROVIDE EXCELLENT MEDICAL CARE! WE HOPE THAT WE HAVE MET YOUR EXPECTATIONS DURING YOUR EMERGENCY DEPARTMENT VISIT AND THAT YOU FEEL YOU HAVE RECEIVED EXCELLENT CARE! Prescriptions: Cefdinir 300 mg PO BID #20 capsule Prednisone [Deltasone 20 mg Tablet] 1 tab PO BID 5 Days #10 tablet Albuterol Sulfate [Proair HFA Inhalation Aerosol 8.5 gm MDI] 2 puff IH Q4H PRN #1 mdi PRN Reason:
[2019-07-29 12:57] LABS: A TYPE INFLUENZA AG NEGATIVE (NEGATIVE); B INFLUENZA AG NEGATIVE (NEGATIVE)
[2019-07-29] MEDS ORDERED: METHYLPREDNISOLONE INJ 125 MG/2 ML SDV IV ONE (13:02)
[2019-07-29] MEDS ORDERED: CEFTRIAXONE INJ 1000 MG VIAL IV ONE (13:03)
[2019-07-29 13:41] VITALS: BP 132/84
--- NOTE | 2019-07-29 14:47 | EKG REPORT ---
SEVERITY:- NORMAL ECG - SINUS RHYTHM : Confirmed by: Adrian Le MD 29-Jul-2019 14:46:50
== END 2019-07-29 14:21 | disposition home or self-care (01) ==
LOC: ER 10:55
DX: J20.9 Acute bronchitis, unspecified (principal); R05 Cough
CPT/HCPCS: 93005; 94640; 99285; 96375; 96365; 36415; 87040; 85025; 80053; 84484; 87804; 71046; 93010; J1885; J7512; J0696; J7620

== ENCOUNTER 2019-09-20 22:18 | Emergency (ER) | payer SELFPAY ==
--- NOTE | 2019-09-21 | ER Document Report ---
ED Hand/Wrist Injury - General Chief Complaint: Finger Injury Stated Complaint: RIGHT HAND FINGER INJURY Time Seen by Provider: 09/20/19 23:58 Mode of Arrival: Ambulatory Information source: Patient Notes: 33-year-old female past medical history significant for sickle cell trait and asthma presents to the emergency room complaining of pain and swelling to her right middle finger for the past 4 days. States she did cut her nails on and started having pain on Wednesday. Describes it as a throbbing sensation. Denies any fevers. Taking Tylenol without relief. Denies . Patient is right-handed. TRAVEL OUTSIDE OF THE [place] IN LAST 30 DAYS: No - HPI Injury to: Middle finger - Related Data Allergies/Adverse Reactions: No Known Allergies Allergy (Verified 07/29/19 11:01) Past Medical History - General Information source: Patient - Social History Smoking Status: Never Smoker Chew tobacco use (# tins/day): No Frequency of alcohol use: None Drug Abuse: None Lives with: Family Family History: Other - Father with asthma Patient has homicidal ideation: No - Medical History Medical History: Other - Sickle cell trait - Past Medical History Cardiac Medical History: Denies: Hx Coronary Artery Disease, Hx Heart Attack, Hx Hypertension Pulmonary Medical History: Reports: Hx Asthma Denies: Hx Bronchitis, Hx COPD, Hx Pneumonia Neurological Medical History: Denies: Hx Cerebrovascular Accident, Hx Seizures Renal/ Medical History: Denies: Hx Peritoneal Dialysis Musculoskeletal Medical History: Denies Hx Arthritis Past Surgical History: Denies: Hx Hysterectomy - Immunizations Immunizations up to date: Yes Hx Diphtheria, Pertussis, Tetanus Vaccination: Yes Review of Systems - Review of Systems Constitutional: No symptoms reported EENT: No symptoms reported Cardiovascular: No symptoms reported Respiratory: No symptoms reported Musculoskeletal: Joint pain - Pain to the medial aspect distal right middle finger along the nail Skin: Other - Erythema, swelling Neurological/Psychological: No symptoms reported -: Yes All other systems reviewed and negative Physical Exam - Vital signs Vitals: Temp Pulse Resp BP Pulse Ox 98.6 F 71 14 137/84 H 99 09/20/19 22:22 09/20/19 22:22 09/20/19 22:22 09/20/19 22:22 09/20/19 22:22 - General General appearance: Appears well, Alert In distress: Mild - HEENT Head: Normocephalic, Atraumatic Eyes: Normal Pupils: PERRL - Respiratory Respiratory status: No respiratory distress Chest status: Nontender Breath sounds: Normal Chest palpation: Normal - Cardiovascular Rhythm: Regular Heart sounds: Normal auscultation Murmur: No - Extremities Hand: Tender - Medial aspect base of the right middle finger nail with erythema, swelling, tender to palpation., Swelling, Other - Full range of motion with flexion extension of the right middle finger.. No: No evidence of FB - Neurological Neuro grossly intact: Yes Cognition: Normal Orientation: AAOx4 Notes: Positive right radial pulse. Capillary refill less than 3 seconds. - Skin Skin Temperature: Warm Skin Moisture: Dry Location of irregularity: Extremities - Edema, swelling, tenderness to the medial aspect at the base of the right middle finger. Course - Vital Signs Vital signs: Temp Pulse Resp BP Pulse Ox 98.3 F 77 18 127/78 H 100 09/21/19 01:02 09/21/19 01:02 09/21/19 01:02 09/21/19 01:02 09/21/19 01:02 Procedures - Additional Procedures incision Time performed: 00:44 Additional Procedures: Other - cleansed area with Betadine, Incision and drainage of right middle finger paronychia with #11 blade draining small amount of pus from edge of nail Discharge - Discharge Clinical Impression: Paronychia of right middle finger Condition: Stable Disposition: HOME, SELF-CARE Instructions: Paronychia ([facility]) Additional Instructions: Warm soaks 20 minutes 3 times a day. Apply pressure to support drainage. Tylenol and/or Motrin for pain. Antibiotics as prescribed. Return for any new or worsening symptoms. Prescriptions: Cephalexin Monohydrate [Keflex 500 mg Capsule] 500 mg PO Q6H 10 Days #39 capsule
[2019-09-21] MEDS ORDERED: IBUPROFEN 600 MG TABLET PO ONE (00:28)
[2019-09-21] MEDS ORDERED: CEPHALEXIN 500 MG CAPSULE PO ONE (00:45)
[2019-09-21 01:05] VITALS: BP 127/78
== END 2019-09-21 01:06 | disposition home or self-care (01) ==
LOC: ER 22:18
DX: L03.011 Cellulitis of right finger (principal)
CPT/HCPCS: 99283

== ENCOUNTER 2019-09-26 10:03 | Emergency (ER) | payer SELFPAY ==
[2019-09-26] MEDS ORDERED: NORMAL SALINE 1000 ML 1,000 ML IV ONE (10:46)
[2019-09-26] MEDS ORDERED: DIPHENHYDRAMINE HCL 50 MG/ML VIAL IV ONE (10:46)
--- NOTE | 2019-09-26 10:52 | ER Document Report ---
ED Medical Screen (RME) - General Stated Complaint: BODY PAIN Time Seen by Provider: 09/26/19 10:43 TRAVEL OUTSIDE OF THE [place] IN LAST 30 DAYS: No - HPI Notes: 09/26/19 10:49 33-year-old female presents to the emergency room for complaints of body pain that started last night with a headache. History of sickle cell crisis, states the last time she had this episode was in July 2019 but she did not come to the emergency room. There is no history of sickle cell crisis when reviewing her chart. patient states she is on her menstrual cycle. Pain is become progressive, tried to take Tylenol last night but did not give her any relief. Does not have a primary care provider. Denies any chest pain shortness of breath, nausea, vomiting, or diarrhea. Denies any rashes. Patient answers no for all protocol COVID questions I have greeted and performed a rapid initial assessment of this patient. A comprehensive ED assessment and evaluation of the patient, analysis of test results and completion of the medical decision making process will be conducted by additional ED providers. PHYSICAL EXAMINATION: GENERAL: Acutely ill-appearing, well-nourished and in no acute distress. CV: tachycardic LUNGS: No respiratory distress Musculoskeletal: Normal range of motion NEUROLOGICAL: Normal speech, normal gait. SKIN: Warm, Dry, normal turgor, no rashes or lesions noted. 09/26/19 10:51 - Related Data Allergies/Adverse Reactions: No Known Allergies Allergy (Verified 07/29/19 11:01) Past Medical History - Past Medical History Cardiac Medical History: Denies: Hx Coronary Artery Disease, Hx Heart Attack, Hx Hypertension Pulmonary Medical History: Reports: Hx Asthma Denies: Hx Bronchitis, Hx COPD, Hx Pneumonia Neurological Medical History: Denies: Hx Cerebrovascular Accident, Hx Seizures Renal/ Medical History: Denies: Hx Peritoneal Dialysis Musculoskeltal Medical History: Denies Hx Arthritis Past Surgical History: Denies: Hx Hysterectomy - Immunizations Immunizations up to date: Yes Hx Diphtheria, Pertussis, Tetanus Vaccination: Yes Physical Exam - Vital signs Vitals: Temp Pulse Resp BP Pulse Ox 99.8 F 120 H 16 132/89 H 98 09/26/19 10:08 09/26/19 10:08 09/26/19 10:08 09/26/19 10:08 09/26/19 10:08 Course - Vital Signs Vital signs: Temp Pulse Resp BP Pulse Ox 99.8 F 120 H 16 132/89 H 98 09/26/19 10:43 09/26/19 10:08 09/26/19 10:08 09/26/19 10:08 09/26/19 10:08
[2019-09-26] MEDS ORDERED: KETOROLAC TROMETHAMINE INJ/PF 30 MG/1 ML SDV IV ONE (11:11)
--- NOTE | 2019-09-26 11:38 | ER Document Report ---
ED General Pain - General Chief Complaint: Pain All Over Stated Complaint: BODY PAIN Time Seen by Provider: 09/26/19 10:43 Notes: CHIEF COMPLAINT: Headache and body ache HPI: 33-year-old female presenting to the emergency department complaining of a generalized headache, generalized body ache, backache that began yesterday. Subjective fever at home yesterday with some chills no fever today. Denies sore throat. Denies chest pain. Denies shortness of breath. Denies cough. Denies abdominal pain nausea vomiting. Denies dysuria. Patient denies recent travel or exposure to anyone positive for COVID-19. Patient states that she has had headaches like this in the past although they are not frequent and states that normally when she takes Tylenol they go away but when she tried this yesterday it did not help. Denies posterior neck pain. Patient states she does have sickle cell trait has never actually had sickle cell disease or crisis. ROS: See HPI - all other systems were reviewed and are otherwise negative Constitutional: no fever Eyes: no drainage, no blurred vision ENT: no runny nose, no sore throat Cardiovascular: no chest pain Resp: no SOB, no cough GI: no vomiting, no diarrhea, no abdominal pain : no dysuria Integumentary: no rash Allergy: no hives Musculoskeletal: no extremity pain or swelling , + myalgia Neurological: no numbness/tingling, no weakness, + headache MEDICATIONS: I agree with the patient medications as charted by the RN. ALLERGIES: I agree with the allergies as charted by the RN. PAST MEDICAL HISTORY/PAST SURGICAL HISTORY: Reviewed and agree as charted by RN. SOCIAL HISTORY: Reviewed and agree as charted by RN. FAMILY HISTORY: No significant familial comorbid conditions directly related to patient complaint EXAM: Reviewed vital signs as charted by RN. CONSTITUTIONAL: Alert and oriented and responds appropriately to questions. Well-appearing; well-nourished, mild distress secondary to discomfort HEAD: Normocephalic; atraumatic EYES: PERRL; Conjunctivae clear, sclerae non-icteric ENT: normal nose; no rhinorrhea; moist mucous membranes; pharynx without lesions noted, no uvula edema or deviation, no tonsillar hypertrophy, phonation normal NECK: Supple without meningismus; non-tender; no cervical lymphadenopathy, no masses CARD: Tachycardic; no murmurs, no clicks, no rubs, no gallops; symmetric distal pulses RESP: Normal chest excursion without splinting or tachypnea; breath sounds clear and equal bilaterally; no wheezes, no rhonchi, no rales, pulse oximetry 98% on r oom air not hypoxic ABD/GI: Normal bowel sounds; non-distended; soft, non-tender, no rebound, no gua rding; no palpable organomegaly or masses. BACK: The back appears normal and is non-tender to palpation, there is no CVA tenderness EXT: Normal ROM in all joints; non-tender to palpation; no cyanosis, no effusions, no edema SKIN: Normal color for age and race; warm; dry; good turgor; no acute lesions noted NEURO: Moves all extremities equally; Motor and sensory function intact PSYCH: The patient's mood and manner are appropriate. Grooming and personal hygiene are appropriate. MDM: 33-year-old female with sickle cell trait not sickle cell disease presenting for generalized body ache and headache that began last night with a subjective fever. No fever today. Mildly tachycardic. Initial screening lab work through the triage process. Patient is able to fully rotate the head and neck without significant nuchal rigidity. Will follow the ordered lab work, treat patient's headache and reassess TRAVEL OUTSIDE OF THE [place] IN LAST 30 DAYS: No - Related Data Allergies/Adverse Reactions: No Known Allergies Allergy (Verified 07/29/19 11:01) Past Medical History - Social History Smoking Status: Unknown if Ever Smoked Family History: Other - Father with asthma Patient has homicidal ideation: No - Past Medical History Cardiac Medical History: Denies: Hx Coronary Artery Disease, Hx Heart Attack, Hx Hypertension Pulmonary Medical History: Reports: Hx Asthma Denies: Hx Bronchitis, Hx COPD, Hx Pneumonia Neurological Medical History: Denies: Hx Cerebrovascular Accident, Hx Seizures Renal/ Medical History: Denies: Hx Peritoneal Dialysis Musculoskeletal Medical History: Denies Hx Arthritis Past Surgical History: Denies: Hx Hysterectomy - Immunizations Immunizations up to date: Yes Hx Diphtheria, Pertussis, Tetanus Vaccination: Yes Physical Exam - Vital signs Vitals: Temp Pulse Resp BP Pulse Ox 99.8 F 120 H 16 132/89 H 98 09/26/19 10:08 09/26/19 10:08 09/26/19 10:08 09/26/19 10:08 09/26/19 10:08 Course - Re-evaluation Re-evalutation: 09/26/19 13:29 Patient is feeling slightly better than previously. She appears clinically to look well. She is able to put her chin on her chest and fully rotate her head and neck without significant nuchal rigidity. Discussed with attending Dr. Major. Patient's work-up does not show any acute abnormalities. Headache is slightly better. This is likely a viral etiology, I discussed possibilities of meningitis with the patient although I think there is a low suspicion at this time given her clinical exam. Patient will be discharged home on anti-inflam matories and oral hydration for the next 2 days, if she feels worse in 48 to 72 hours has worsening headache worsening neck pain or fevers she is to return for reevaluation 09/26/19 13:33 Nursing will recheck vital signs and notify me of abnormalities prior to discharge - Vital Signs Vital signs: Temp Pulse Resp BP Pulse Ox 99.8 F 120 H 16 132/89 H 98 09/26/19 10:43 09/26/19 10:08 09/26/19 10:08 09/26/19 10:08 09/26/19 10:08 - Laboratory Result Diagrams: 09/26/19 11:33 09/26/19 11:33 Laboratory results interpreted by me: 09/26/19 09/26/19 09/26/19 11:32 11:33 11:33 Monocytes % (Manual) 19 H Total Protein 8.3 H Urine Blood LARGE H Discharge - Discharge Clinical Impression: Viral syndrome, Myalgia Condition: Stable Disposition: HOME, SELF-CARE Additional Instructions: Hydrate well at home. Take naproxen consistently for pain. Your lab work and imaging studies today did not show acute abnormalities this is likely a viral etiology. If you have worsening headache or neck pain, with consistent fevers at home above 101, worsening symptoms please return for reevaluation as juan miguel bunch in the next 2 to 3 days Prescriptions: Naproxen 500 mg PO BID PRN #14 tablet PRN Reason:
[2019-09-26 12:02] LABS: APPEARANCE,URINE SLIGHTLY-CLOUDY; BILIRUBIN,URINE NEGATIVE (NEGATIVE); COLOR,URINE YELLOW; GLUCOSE, URINE NEGATIVE (NEGATIVE); KETONES,URINE NEGATIVE (NEGATIVE); LEUKOCYTE ESTERASE,URINE NEGATIVE (NEGATIVE); NITRITE,URINE NEGATIVE (NEGATIVE); PROTEIN,URINE NEGATIVE (NEGATIVE); URINE SPECIFIC GRAVITY 1.011; UROBILINOGEN,URINE NEGATIVE mg/dL (<2.0)
[2019-09-26 12:10] LABS: ABSOLUTE RETICS # 0.051 10^6/uL (0.028-0.122); HEMATOCRIT 39.8 % (36.0-47.0); HEMOGLOBIN 14.2 g/dL (12.0-15.5); MEAN CORPUSCULAR HEMOGLOBIN 28.8 pg (27.0-33.4); MEAN CORPUSCULAR HGB CONC 35.6 g/dL (32.0-36.0); MEAN CORPUSCULAR VOLUME 81 fl (80-97); PLATELET COUNT 259 10^3/uL (150-450); RED BLOOD COUNT 4.91 10^6/uL (3.72-5.28); RED CELL DISTRIBUTION WIDTH 13.6 % (11.5-14.0); RETICULOCYTE COUNT (AUTO) 1.04 % (0.66-2.85)
--- NOTE | 2019-09-26 12:10 | RADIOLOGY REPORT (SQ) ---
EXAM DESCRIPTION: CHEST SINGLE VIEW IMAGES COMPLETED DATE/TIME: 09/26/2019 11:49 am REASON FOR STUDY: myalgias, low grade fever COMPARISON: PA and lateral views of the chest from 07/29/2019. EXAM PARAMETERS: NUMBER OF VIEWS: One view. TECHNIQUE: An AP view of the chest was obtained. RADIATION DOSE: NA LIMITATIONS: None. FINDINGS: LUNGS AND PLEURA: No consolidation, pleural effusion or pneumothorax. MEDIASTINUM AND HILAR STRUCTURES: No mediastinal or hilar contour abnormality. HEART AND VASCULAR STRUCTURES: The cardiac silhouette and pulmonary vasculature are within normal ambriz its. BONES: No acute findings. HARDWARE: None in the chest. OTHER: No other finding. IMPRESSION: No acute cardiopulmonary process. TECHNICAL DOCUMENTATION: JOB ID: [id number] 2010 [employer]- All Rights Reserved Reading location - IP/workstation name: [email or web address]
[2019-09-26 12:15] LABS: URINE AMPHETAMINES SCREEN NEGATIVE; URINE BARBITURATES SCREEN NEGATIVE; URINE BENZODIAZEPINES SCREEN NEGATIVE; URINE COCAINE SCREEN NEGATIVE; URINE MARIJUANA (THC) SCREEN NEGATIVE; URINE METHADONE SCREEN NEGATIVE; URINE PHENCYCLIDINE SCREEN NEGATIVE
[2019-09-26 12:17] LABS: ALBUMIN 4.7 g/dL (3.5-5.0); ALKALINE PHOSPHATASE 69 U/L (38-126); ANION GAP 9 (5-19); ASPARTATE AMINO TRANSFERASE 28 U/L (14-36); BLOOD UREA NITROGEN 7 mg/dL (7-20); CALCIUM 9.4 mg/dL (8.4-10.2); CARBON DIOXIDE 27 mmol/L (22-30); CHLORIDE 102 mmol/L (98-107); GLUCOSE 96 mg/dL (75-110); POTASSIUM 3.9 mmol/L (3.6-5.0); TOTAL PROTEIN 8.3 g/dL (6.3-8.2)
[2019-09-26 12:26] LABS: A TYPE INFLUENZA AG NEGATIVE (NEGATIVE); B INFLUENZA AG NEGATIVE (NEGATIVE)
[2019-09-26 12:32] LABS: ABSOLUTE LYMPHOCYTES# (MANUAL) 0.9 10^3/uL (0.5-4.7); ABSOLUTE MONOCYTES # (MANUAL) 1.3 10^3/uL (0.1-1.4); BASOPHILS % (MANUAL) 0 % (0-2); EOSINOPHILS % (MANUAL) 0 % (0-6); LYMPHOCYTES % (MANUAL) 13 % (13-45); MONOCYTES % (MANUAL) 19 % (3-13); SEGMENTED NEUTROPHILS % (MAN) 68 % (42-78); TOTAL CELLS COUNTED 100
[2019-09-26 12:33] LABS: PLATELET COMMENT ADEQUATE; RBC MORPHOLOGY COMMENT NORMO-CYTIC/CHROMIC
--- NOTE | 2019-09-26 12:57 | EKG REPORT ---
SEVERITY:- OTHERWISE NORMAL ECG - SINUS TACHYCARDIA BORDERLINE LEFT AXIS DEVIATION : Confirmed by: Adrian Le MD 26-Sep-2019 12:55:59
[2019-09-26 13:51] VITALS: BP 121/71
== END 2019-09-26 13:52 | disposition home or self-care (01) ==
LOC: ER 10:03
DX: B34.9 Viral infection, unspecified (principal); M79.10 Myalgia, unspecified site; R51 Headache; M54.9 Dorsalgia, unspecified; D57.3 Sickle-cell trait; R00.0 Tachycardia, unspecified; J45.909 Unspecified asthma, uncomplicated
CPT/HCPCS: 93005; 99284; 96361; 96374; 96375; 36415; 87070; 87880; 84443; 85025; 81025; 85045; 80053; 81001; 80307; 87804; 71045; 93010; J1200; J1885; J7030

== ENCOUNTER 2019-09-30 15:11 | Emergency (ER) | payer SELFPAY ==
[2019-09-30] MEDS ORDERED: METOCLOPRAMIDE HCL 10 MG TABLET PO ONE (15:35)
--- NOTE | 2019-09-30 15:36 | ER Document Report ---
ED Medical Screen (RME) - General Chief Complaint: Vomiting Stated Complaint: VOMITING/DIZZY Time Seen by Provider: 09/30/19 15:30 Mode of Arrival: Ambulatory Information source: Patient Notes: 33-year-old female presents emergency department with complaints of vomiting since . Reports she has been taking Keflex since last week for a finger injury. She reports she was also evaluated on this past Wednesday for a headache. She reports she has been throwing up since and now she feels dizzy. She also complains of some diarrhea. Denies fever. Lives at home with her kids they are not sick. No known Covid exposure. 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 I have greeted and performed a rapid initial assessment of this patient. A c omprehensive ED assessment and evaluation of the patient, analysis of test results and completion of the medical decision making process will be conducted by additional ED providers. TRAVEL OUTSIDE OF THE [place] IN LAST 30 DAYS: No - Related Data Allergies/Adverse Reactions: No Known Allergies Allergy (Verified 07/29/19 11:01) Past Medical History - Past Medical History Cardiac Medical History: Denies: Hx Coronary Artery Disease, Hx Heart Attack, Hx Hypertension Pulmonary Medical History: Reports: Hx Asthma Denies: Hx Bronchitis, Hx COPD, Hx Pneumonia Neurological Medical History: Denies: Hx Cerebrovascular Accident, Hx Seizures Renal/ Medical History: Denies: Hx Peritoneal Dialysis Musculoskeltal Medical History: Denies Hx Arthritis Past Surgical History: Denies: Hx Hysterectomy - Immunizations Immunizations up to date: Yes Hx Diphtheria, Pertussis, Tetanus Vaccination: Yes Physical Exam - Vital signs Vitals: Temp Pulse Resp BP Pulse Ox 97.9 F 83 16 128/81 H 99 09/30/19 15:15 09/30/19 15:15 09/30/19 15:15 09/30/19 15:15 09/30/19 15:15 Course - Vital Signs Vital signs: Temp Pulse Resp BP Pulse Ox 97.9 F 83 16 128/81 H 99 09/30/19 15:15 09/30/19 15:15 09/30/19 15:15 09/30/19 15:15 09/30/19 15:15
[2019-09-30 15:58] LABS: ABSOLUTE BASOPHILS # (AUTO) 0.1 10^3/uL (0.0-0.2); ABSOLUTE EOSINOPHILS # (AUTO) 0.1 10^3/uL (0.0-0.6); ABSOLUTE LYMPHOCYTES (AUTO) 2.3 10^3/uL (0.5-4.7); ABSOLUTE MONOCYTES (AUTO) 0.6 10^3/uL (0.1-1.4); ABSOLUTE NEUT (AUTO) 1.9 10^3/uL (1.7-8.2); BASOPHILS % (AUTO) 1.2 % (0-2); EOSINOPHILS % (AUTO) 1.1 % (0-6); HEMATOCRIT 40.1 % (36.0-47.0); HEMOGLOBIN 14.2 g/dL (12.0-15.5); LYMPHOCYTES % (AUTO) 47.2 % (13-45); MEAN CORPUSCULAR HEMOGLOBIN 28.6 pg (27.0-33.4); MEAN CORPUSCULAR HGB CONC 35.4 g/dL (32.0-36.0); MEAN CORPUSCULAR VOLUME 81 fl (80-97); MONOCYTES % (AUTO) 11.7 % (3-13); PLATELET COUNT 242 10^3/uL (150-450); RED BLOOD COUNT 4.96 10^6/uL (3.72-5.28); RED CELL DISTRIBUTION WIDTH 13.3 % (11.5-14.0); SEGMENTED NEUTROPHILS % (AUTO) 38.8 % (42-78); TOTAL CELLS COUNTED % (AUTO) 100 %; WHITE BLOOD COUNT 4.9 10^3/uL (4.0-10.5)
[2019-09-30 16:18] LABS: ALBUMIN 4.1 g/dL (3.5-5.0); ALKALINE PHOSPHATASE 53 U/L (38-126); ANION GAP 8 (5-19); ASPARTATE AMINO TRANSFERASE 37 U/L (14-36); BILIRUBIN,TOTAL 0.9 mg/dL (0.2-1.3); BLOOD UREA NITROGEN 7 mg/dL (7-20); CARBON DIOXIDE 29 mmol/L (22-30); CHLORIDE 102 mmol/L (98-107); GLUCOSE 108 mg/dL (75-110); POTASSIUM 3.3 mmol/L (3.6-5.0); TOTAL PROTEIN 7.5 g/dL (6.3-8.2)
[2019-09-30 16:52] LABS: APPEARANCE,URINE SLIGHTLY-CLOUDY; BILIRUBIN,URINE NEGATIVE (NEGATIVE); COLOR,URINE STRAW; GLUCOSE, URINE NEGATIVE (NEGATIVE); KETONES,URINE NEGATIVE (NEGATIVE); LEUKOCYTE ESTERASE,URINE SMALL (NEGATIVE); NITRITE,URINE NEGATIVE (NEGATIVE); PROTEIN,URINE NEGATIVE (NEGATIVE); URINE SPECIFIC GRAVITY 1.002; UROBILINOGEN,URINE NEGATIVE mg/dL (<2.0)
[2019-09-30] MEDS ORDERED: RINGERS SOLUTION,LACTATED 1,000 ML IV ONE (17:09)
[2019-09-30] MEDS ORDERED: PANTOPRAZOLE SODIUM 40 MG TABLET.DR PO ONE (20:30)
[2019-09-30] MEDS ORDERED: ONDANSETRON 4 MG TAB.RAPDIS PO ONE (20:30)
[2019-09-30] MEDS ORDERED: PROCHLORPERAZINE MALEATE 10 MG TABLET PO ONE (21:07)
[2019-09-30] MEDS ORDERED: ONDANSETRON ODT 4 MG TAB (6 TAB/ER DISP) PO PRN (21:08)
[2019-09-30 21:20] VITALS: BP 140/88
--- NOTE | 2019-09-30 21:36 | EKG REPORT ---
SEVERITY:- ABNORMAL ECG - SINUS RHYTHM PROBABLE LEFT ATRIAL ABNORMALITY PROBABLE LEFT VENTRICULAR HYPERTROPHY : Confirmed by: Adrian Le MD 30-Sep-2019 21:35:53
--- NOTE | 2019-10-01 01:08 | ER Document Report ---
Entered by ASHLIE SHOEMAKER SCRIBE 09/30/19 [id number] Acting as scribe for:MARK CLAIRE DO ED GI/ - General Chief Complaint: Nausea/Vomiting Stated Complaint: VOMITING/DIZZY Time Seen by Provider: 09/30/19 15:30 Mode of Arrival: Ambulatory Information source: Patient Notes: This 33 year old female patient presents to the emergency department today for complaints of nausea and vomiting for the last two days. Patient was seen here on 09/26/2019 for a finger laceration and she was sent home on keflex and she thinks that may be what is upsetting her stomach. Patient also reports taking naproxen recently for a headache. Patient states that her nausea is completely resolved now after getting medication in triage. Patient's headache has also subsided now. TRAVEL OUTSIDE OF THE [place] IN LAST 30 DAYS: No - Related Data Allergies/Adverse Reactions: No Known Allergies Allergy (Verified 07/29/19 11:01) Past Medical History - General Information source: Patient - Social History Smoking Status: Never Smoker Cigarette use (# per day): No Chew tobacco use (# tins/day): Yes Frequency of alcohol use: None Family History: Other - Father with asthma Patient has homicidal ideation: No Pulmonary Medical History: Reports: Hx Asthma Past Surgical History: Denies: Hx Hysterectomy - Immunizations Immunizations up to date: Yes Hx Diphtheria, Pertussis, Tetanus Vaccination: Yes Review of Systems - Review of Systems Constitutional: No symptoms reported EENT: No symptoms reported Cardiovascular: No symptoms reported Respiratory: No symptoms reported Gastrointestinal: See HPI, Nausea, Vomiting Genitourinary: No symptoms reported Female Genitourinary: No symptoms reported Musculoskeletal: No symptoms reported Skin: No symptoms reported Hematologic/Lymphatic: No symptoms reported Neurological/Psychological: See HPI, Headaches -: Yes All other systems reviewed and negative Physical Exam - Vital signs Vitals: Temp 97.9 F 09/30/19 15:11 Interpretation: Normal - General General appearance: Appears well, Alert In distress: None Notes: Appears uncomfortable - HEENT Head: Normocephalic, Atraumatic Eyes: Normal Pupils: PERRL - Respiratory Respiratory status: No respiratory distress Chest status: Nontender Breath sounds: Normal Chest palpation: Normal - Cardiovascular Rhythm: Regular Heart sounds: Normal auscultation Murmur: No - Abdominal Inspection: Normal Distension: No distension Bowel sounds: Normal Tenderness: Nontender Organomegaly: No organomegaly - Back Back: Normal, Nontender - Extremities General upper extremity: Normal inspection, Nontender, Normal color, Normal ROM, Normal temperature General lower extremity: Normal inspection, Nontender, Normal color, Normal ROM, Normal temperature, Normal weight bearing. No: Yumiko's sign - Neurological Neuro grossly intact: Yes Cognition: Normal Orientation: AAOx4 [place] Coma Scale Eye Opening: Spontaneous [place] Coma Scale Verbal: Oriented [place] Coma Scale Motor: Obeys Commands Gerson Coma Scale Total: 15 Speech: Normal Motor strength normal: LUE, RUE, LLE, RLE Sensory: Normal - Psychological Associated symptoms: Normal affect, Normal mood - Skin Skin Temperature: Warm Skin Moisture: Dry Skin Color: Normal Course - Re-evaluation Re-evalutation: Patient is a 33-year-old female who comes in complaining of dyspepsia and nausea. Patient received Reglan without any real improvement. Received fluids and then wanted IV out as a line was starting to pull out anyway. Patient received Zofran and was able to keep fluids down. Was feeling better would like to be discharged home. Blood work and urine benign. Patient has been taking Keflex and naproxen on what sounds like an empty stomach. This is likely the source of her dyspepsia. No abdominal pain or tenderness to palpation. Stable for discharge. Return if any worsening or concerning symptoms. Understands agrees with plan. - Vital Signs Vital signs: Temp Pulse Resp BP Pulse Ox 97.8 F 72 17 140/88 H 96 09/30/19 21:19 09/30/19 21:19 09/30/19 21:19 09/30/19 21:19 09/30/19 21:19 - Laboratory Result Diagrams: 09/30/19 15:45 09/30/19 15:45 Laboratory results interpreted by me: 09/30/19 09/30/19 09/30/19 15:45 15:45 16:36 Lymph % (Auto) 47.2 H Seg Neutrophils % 38.8 L Potassium 3.3 L AST 37 H Urine Blood SMALL H Ur Leukocyte Esterase SMALL H Discharge - Discharge Clinical Impression: Dyspepsia Nausea & vomiting Qualifiers: Vomiting type: unspecified Vomiting Intractability: unspecified Qualified Code(s): R11.2 - Nausea with vomiting, unspecified Condition: Stable Disposition: HOME, SELF-CARE Instructions: Nausea or Vomiting, Nonspecific ([facility]) Additional Instructions: Please stop taking Keflex and naproxen. You may take Tylenol as needed for pain. Make sure you are eating when you take any medications. Prescriptions: Prochlorperazine Maleate [Compazine 10 mg Tablet] 10 mg PO ASDIR PRN #20 tablet PRN Reason: Omeprazole 20 mg PO DAILY #14 capsule.dr Worrell personally performed the services described in the documentation, reviewed and edited the documentation which was dictated to the scribe in my presence, and it accurately records my words and actions.
== END 2019-09-30 21:25 | disposition home or self-care (01) ==
LOC: ER 15:11
DX: R11.2 Nausea with vomiting, unspecified (principal); R10.13 Epigastric pain; R51 Headache; J45.909 Unspecified asthma, uncomplicated
CPT/HCPCS: 93005; 99284; 96360; 36415; 84703; 85025; 80053; 81001; 93010; S0119; S0183; J7120; J3490

== ENCOUNTER 2020-02-06 13:27 | Emergency (ER) | payer SELFPAY ==
[2020-02-06 13:46] VITALS: BP 135/71
--- NOTE | 2020-02-06 14:15 | ER Document Report ---
HPI - HPI Time Seen by Provider: 02/06/20 14:01 Pain Level: 5 Context: Patient is a 34-year-old female who presents the emergency department with a chief complaint of a rash under both her breasts. Patient states that she has had her symptoms for the past 5 months. Patient states that she was given a cream and it did not help her. Patient states that she stopped wearing bras due to the pain. Patient also states that she has "bumps" to the areas. Denies any fever, body aches, or chills. - ROS Systems Reviewed and Negative: Yes All other systems reviewed and negative - CONSTITUTIONAL Constitutional: DENIES: Fever, Chills - CARDIOVASCULAR Cardiovascular: DENIES: Chest pain - RESPIRATORY Respiratory: DENIES: Trouble Breathing, Coughing - GASTROINTESTINAL Gastrointestinal: DENIES: Abdominal Pain, Nausea, Patient vomiting - REPRODUCTIVE Reproductive: DENIES: : - DERM Skin Problems: Rash - Under bilateral breasts, Past Medical History - Social History Smoking Status: Never Smoker Chew tobacco use (# tins/day): No Frequency of alcohol use: None Drug Abuse: None Family History: Other - Father with asthma Patient has homicidal ideation: No - Past Medical History Cardiac Medical History: Denies: Hx Coronary Artery Disease, Hx Heart Attack, Hx Hypertension Pulmonary Medical History: Reports: Hx Asthma Denies: Hx Bronchitis, Hx COPD, Hx Pneumonia Neurological Medical History: Denies: Hx Cerebrovascular Accident, Hx Seizures Renal/ Medical History: Denies: Hx Peritoneal Dialysis Musculoskeletal Medical History: Denies Hx Arthritis Past Surgical History: Denies: Hx Hysterectomy - Immunizations Immunizations up to date: Yes Hx Diphtheria, Pertussis, Tetanus Vaccination: Yes Vertical Provider Document - CONSTITUTIONAL Agree With Documented VS: Yes Exam Limitations: No Limitations General Appearance: No Apparent Distress - INFECTION CONTROL TRAVEL OUTSIDE OF THE [place] IN LAST 30 DAYS: No - HEENT HEENT: Atraumatic, Normocephalic, PERRLA - NECK Neck: Normal Inspection - RESPIRATORY Respiratory: No Respiratory Distress - CARDIOVASCULAR Cardiovascular: Regular Rate - MUSCULOSKELETAL/EXTREMETIES Musculoskeletal/Extremeties: FROM, Tender - Inferior breasts - NEURO Level of Consciousness: Awake, Alert, Appropriate Motor/Sensory: No Motor Deficit, No Sensory Deficit - DERM Integumentary: Warm, Dry, Rash - Inferior bilateral breast; multiple small raised cauliflower-looking areas Course - Re-evaluation Re-evalutation: 02/06/20 It appears that some of the "lumps" on her chest seem to be warts. Will send the patient to dermatology for possible biopsy. Patient's skin under her breasts are erythematous, was likely due to her breast rubbing against her chest wall. Advised that the patient wear a cotton bra with no underwire to help prevent further skin irritation. We will also put the patient on nystatin powder. She is in agreement with this plan. No evidence of necrotizing fasciitis. Follow-up precautions were given. Verbal discharge instructions were given to the patient. They verbalized understanding. They are stable for discharge. - Vital Signs Vital signs: Temp Pulse Resp BP Pulse Ox 98.4 F 93 16 135/71 H 98 02/06/20 14:00 02/06/20 13:43 02/06/20 13:43 02/06/20 13:43 02/06/20 13:43 Discharge - Discharge Clinical Impression: Breast pain, Rash Condition: Stable Disposition: HOME, SELF-CARE Additional Instructions: You were seen today in the emergency department for a rash on your chest. Use the nystatin powder as directed. Please follow-up with a air hammer stripper. I recommend a biopsy of the lesions on your chest. You can also follow-up with 1 of the clinics below. [facility] [address] [place] [facility] [address] Prescriptions: Nystatin 1,000,000 unit QID #1 powder.ea. Referrals: [facility] [Provider Group] - Follow up as needed [facility] [Provider Group] - Follow up as needed
== END 2020-02-06 14:27 | disposition home or self-care (01) ==
LOC: ER 13:27
DX: R21 Rash and other nonspecific skin eruption (principal); N64.4 Mastodynia
CPT/HCPCS: 99283

== ENCOUNTER 2020-03-12 10:05 | Emergency (ER) | payer SELFPAY ==
--- NOTE | 2020-03-12 11:31 | ER Document Report ---
HPI - HPI Time Seen by Provider: 03/12/20 11:21 Pain Level: 4 Notes: 34 yr old female presents emergency room today for complaints of sinus pain, headache congestion for the last 2 weeks, has become progressively worse. Generally, Claritin Mucinex, nasal rinses without relief. Reports yellow and green drainage from nose, worse when bending over. Pain is 3 out of 5, throbbing constant and achy. Denies any exposure to Covid, Covid patients, Covid test the last 2 weeks. History of seasonal allergies. denies fevers, chills, chest pain,palpitations, shortness of breath, dyspnea, nausea, vomiting, diarrhea, abdominal pain, hematuria,blurred vision, double vision, loss of vision, speech changes, LH, dizziness, syncope, headaches, wheezing, ST, URI, neck pain, weakness, bowel or bladder dysfunction, saddle anesthesia, numbness or tingling in bilateral upper or lower extremities equally, muscle paralysis, weakness in bilateral upper or lower extremities equally or rash. Denies IV drug use. MEDICATIONS: I agree with the patient medications as charted by the RN. ALLERGIES: I agree with the allergies as charted by the RN. PAST MEDICAL HISTORY/PAST SURGICAL HISTORY: Reviewed and agree as charted by RN. SOCIAL HISTORY: Reviewed and agree as charted by RN. FAMILY HISTORY: No significant familial comorbid conditions directly related to patient complaint EXAM: Reviewed vital signs as charted by RN. REVIEW OF SYSTEMS:reviewed vital signs by RN CONSTITUTIONAL : Denies fever, chills, or sweats. Denies recent illness. EENT: Reports sinus and nasal congestion with discharge. Denies eye, ear, throat, or mouth pain or symptoms. Denies throat, tongue, or mouth swelling or difficulty swallowing. CARDIOVASCULAR: Denies chest pain. Denies palpitations or racing or irregular heart beat. Denies ankle edema. RESPIRATORY: Denies cough, cold, or chest congestion. Denies shortness of breath, difficulty breathing, or wheezing. GASTROINTESTINAL: Denies abdominal pain or distention. Denies nausea, vomiting, or diarrhea. Denies blood in vomitus, stools, or per rectum. Denies black, tarry stools. Denies constipation. GENITOURINARY: Denies difficulty urinating, painful urination, burning, frequency, blood in urine, or discharge. FEMALE GENITOURINARY: Denies vaginal bleeding, heavy or abnormal periods, irregular periods. Denies vaginal discharge or odor. MUSCULOSKELETAL: Denies back or neck pain or stiffness. Denies joint pain or swelling. SKIN: Denies rash, lesions or sores. HEMATOLOGIC : Denies easy bruising or bleeding. LYMPHATIC: Denies swollen, enlarged glands. NEUROLOGICAL: Denies confusion or altered mental status. Denies passing out or loss of consciousness. Denies dizziness or lightheadedness. Denies headache. Denies weakness or paralysis or loss of use of either side. Denies problems with gait or speech. Denies sensory loss, numbness, or tingling. Denies seizures. PSYCHIATRIC: Denies anxiety or stress. Denies depression, suicidal ideation, or homicidal ideation. ALL OTHER SYSTEMS REVIEWED AND NEGATIVE. PHYSICAL EXAMINATION: GENERAL: Well-appearing, well-nourished and in no acute distress. HEAD: Atraumatic, normocephalic. EYES: Pupils equal round and reactive to light, extraocular movements intact, conjunctiva are normal. ENT: Bilateral TM with effusion, no erythema and intact. oropharynx clear without exudates. Moist mucous membranes. Bilateral boggy turbinates, no septal hematoma bilaterally. Tenderness to right maxillary on palpation. NECK: Normal range of motion, supple without lymphadenopathy LUNGS: Breath sounds clear to auscultation bilaterally and equal. No wheezes rales or rhonchi. HEART: Regular rate and rhythm without murmurs ABDOMEN: Soft, nontender, nondistended abdomen. No guarding, no rebound. No masses appreciated. Female : deferred Musculoskeletal: Normal range of motion, no pitting or edema. No cyanosis. NEUROLOGICAL: Cranial nerves grossly intact. Normal speech, normal gait. Normal sensory, motor exams PSYCH: Normal mood, normal affect. SKIN: Warm, Dry, normal turgor, no rashes or lesions noted. Dictation was performed using [employer] voice recognition software - REPRODUCTIVE Reproductive: DENIES: : Past Medical History - General Information source: Patient - Social History Smoking Status: Never Smoker Chew tobacco use (# tins/day): No Frequency of alcohol use: None Drug Abuse: None Family History: Other - Father with asthma Patient has homicidal ideation: No - Past Medical History Cardiac Medical History: Denies: Hx Coronary Artery Disease, Hx Heart Attack, Hx Hypertension Pulmonary Medical History: Reports: Hx Asthma Denies: Hx Bronchitis, Hx COPD, Hx Pneumonia Neurological Medical History: Denies: Hx Cerebrovascular Accident, Hx Seizures Renal/ Medical History: Denies: Hx Peritoneal Dialysis Musculoskeletal Medical History: Denies Hx Arthritis Past Surgical History: Denies: Hx Hysterectomy - Immunizations Immunizations up to date: Yes Hx Diphtheria, Pertussis, Tetanus Vaccination: Yes Vertical Provider Document - CONSTITUTIONAL Agree With Documented VS: Yes Exam Limitations: No Limitations General Appearance: WD/WN - INFECTION CONTROL TRAVEL OUTSIDE OF THE [place] IN LAST 30 DAYS: No Course - Re-evaluation Re-evalutation: 03/12/20 11:30 Afebrile vitals stable no distress. Nurses notes reviewed. Discussed with patient that she has acute bacterial sinusitis, to take medication twice a day as directed with food to prevent any GI upset or loose stool. Advised to eat yogurt or probiotic 2 hours before or after taking antibiotic. Advised to do nasal rinses continue using Mucinex, Flonase, Tylenol ibuprofen for pain control. Nasal rinses multiple times a day. after performing a Medical Screening Examination, I estimate there is LOW risk for ACUTE CORONARY SYNDROME, PULMONARY EMBOLI, RESPIRATORY FAILURE, SEPSIS OR MENINGITIS, thus I consider the discharge disposition reasonable. I have reevaluated this patient multiple times and no significant life threatening changes are noted. The patient and I have discussed the diagnosis and risks, and we agree with discharging home with close follow-up. We also discussed returning to the Emergency Department immediately if new or worsening symptoms occur. We have discussed the symptoms which are most concerning (e.g., changing or worsening pain, trouble swallowing or breathing, neck stiffness, fever) that necessitate immediate return. Discharge - Discharge Clinical Impression: Acute bacterial sinusitis Condition: Stable Disposition: HOME, SELF-CARE Instructions: Sinusitis ([facility]) Additional Instructions: Return immediately for any new or worsening symptoms. Follow up with primary care provider, call tomorrow to make followup appoi ntment. Prescriptions: Amoxicillin/Potassium Clav [Augmentin 875-125 Tablet] 1 tab PO BID #20 tablet Referrals: ESME SANTIAGO MD [COMMUNITY BASED STAFF] - Follow up as needed
== END 2020-03-12 11:29 | disposition home or self-care (01) ==
LOC: ER 10:05
DX: J01.90 Acute sinusitis, unspecified (principal); B96.89 Other specified bacterial agents as the cause of diseases classified elsewhere; R51.9 Headache, unspecified; J45.909 Unspecified asthma, uncomplicated; Z79.899 Other long term (current) drug therapy
CPT/HCPCS: 99283

== ENCOUNTER 2020-04-13 16:04 | Emergency (ER) | payer SELFPAY ==
[2020-04-13] MEDS ORDERED: TETRACAINE HCL 0.5% OPH SOLN 4 ML OD ONE (16:24)
--- NOTE | 2020-04-13 16:29 | ER Document Report ---
ED Medical Screen (RME) - General Chief Complaint: Eye Pain Stated Complaint: EYE PAIN Time Seen by Provider: 04/13/20 16:21 Notes: Patient is a 34-year-old female presents emergency department with a chief complaint of right eye redness. 2 days ago she took a pair of scissors to cut some eyelashes on her right upper lid. Since then, the patient's eye has been red. Denies any vision changes. Exam: Very erythematous right side of right eye. I have greeted and performed a rapid initial assessment of this patient. A comprehensive ED assessment and evaluation of the patient, analysis of test results and completion of medical decision making process will be conducted by an additional ED providers. TRAVEL OUTSIDE OF THE [place] IN LAST 30 DAYS: No - Related Data Allergies/Adverse Reactions: No Known Allergies Allergy (Verified 04/13/20 16:21) Past Medical History - Past Medical History Cardiac Medical History: Denies: Hx Coronary Artery Disease, Hx Heart Attack, Hx Hypertension Pulmonary Medical History: Reports: Hx Asthma Denies: Hx Bronchitis, Hx COPD, Hx Pneumonia Neurological Medical History: Denies: Hx Cerebrovascular Accident, Hx Seizures Renal/ Medical History: Denies: Hx Peritoneal Dialysis Musculoskeltal Medical History: Denies Hx Arthritis Past Surgical History: Denies: Hx Hysterectomy - Immunizations Immunizations up to date: Yes Hx Diphtheria, Pertussis, Tetanus Vaccination: Yes Physical Exam - Vital signs Vitals: Temp Pulse Resp BP Pulse Ox 97.4 F 82 16 123/78 100 04/13/20 16:10 04/13/20 16:10 04/13/20 16:10 04/13/20 16:10 04/13/20 16:10 Course - Vital Signs Vital signs: Temp Pulse Resp BP Pulse Ox 97.4 F 82 16 123/78 100 04/13/20 16:10 04/13/20 16:10 04/13/20 16:10 04/13/20 16:10 04/13/20 16:10
[2020-04-13] MEDS ORDERED: DIPH/PERTUSS(ACELL)/TETANUS VAC/PF 0.5 ML SYR (>=10YO) IM ONE (19:01)
[2020-04-13] MEDS ORDERED: POLYMYXIN B SULFATE/TMP OPH SOLN (10 ML/ER DISP) OD PRN (19:01)
--- NOTE | 2020-04-13 19:07 | ER Document Report ---
ED Eye Complaint - General Chief Complaint: Eye Pain Stated Complaint: EYE PAIN Time Seen by Provider: 04/13/20 16:21 Notes: HPI: 34-year-old female that presents today with waking with irritation of her right eye. Patient states she was cutting all eyelashes yesterday with scissors. She does this frequently. She denies hitting her eye itself or any damage to the eye. Patient denies any double or blurry vision. No facial swelling or headaches. No difficulty breathing or swallowing. ROS: See HPI Reviewed vital signs and nursing note as charted by RN. PHYSICAL EXAM: CONSTITUTIONAL: Alert and oriented and responds appropriately to questions. Well-appearing; well-nourished HEAD: Normocephalic; atraumatic EYES: Pupils are equal and reactive bilaterally. Patient has what appears to be a subconjunctival hemorrhage to the right quadrant of the right lateral eye. No hypopyon or hyphema. Full painless extraocular range of motion. No obvious intraocular foreign body. Visual acuity as recorded. Cintron lamp shows small a wei of uptake at the 3 o'clock position. No obvious foreign body ulcers present. I did confirm this with the slit-lamp. No obvious cell or flare ENT: Normal nose; no rhinorrhea; moist mucous membranes; pharynx without lesions noted NECK: Supple without meningismus; non-tender; no cervical lymphadenopathy NEURO: CN 2-12 intact TRAVEL OUTSIDE OF THE [place] IN LAST 30 DAYS: No - Related Data Allergies/Adverse Reactions: No Known Allergies Allergy (Verified 04/13/20 16:21) Past Medical History - Social History Smoking Status: Never Smoker Family History: Other - Father with asthma - Past Medical History Cardiac Medical History: Denies: Hx Coronary Artery Disease, Hx Heart Attack, Hx Hypertension Pulmonary Medical History: Reports: Hx Asthma Denies: Hx Bronchitis, Hx COPD, Hx Pneumonia Neurological Medical History: Denies: Hx Cerebrovascular Accident, Hx Seizures Renal/ Medical History: Denies: Hx Peritoneal Dialysis Musculoskeletal Medical History: Denies Hx Arthritis Past Surgical History: Denies: Hx Hysterectomy - Immunizations Immunizations up to date: Yes Hx Diphtheria, Pertussis, Tetanus Vaccination: Yes Physical Exam - Vital signs Vitals: Temp Pulse Resp BP Pulse Ox 97.4 F 82 16 123/78 100 04/13/20 16:10 04/13/20 16:10 04/13/20 16:10 04/13/20 16:10 04/13/20 16:10 - HEENT Visual acuity- Right eye: 20/50 Visual acuity- Left eye: 20/50 Visual acuity- Both eyes: 20/40 Corrective lenses worn: No - Pt. stated that the hallway was too dark to see well Course - Re-evaluation Re-evalutation: 04/13/20 19:05 Given the above history and physical, good visual acuity, equal bilaterally, with a possible corneal abrasion, I will start the patient on Polytrim eyedrops with strict return precautions and follow-up with the analysis specialist that I will help expedite for her. I will also update the patient's tetanus shot. Tonopen pressures normal. - Vital Signs Vital signs: Temp Pulse Resp BP Pulse Ox 97.4 F 82 16 123/78 100 04/13/20 16:10 04/13/20 16:10 04/13/20 16:10 04/13/20 16:10 04/13/20 16:10 Discharge - Discharge Clinical Impression: Injury of conjunctiva and corneal abrasion of right eye w/o FB Qualifiers: Encounter type: initial encounter Qualified Code(s): S05.01XA - Injury of conjunctiva and corneal abrasion without foreign body, right eye, initial encounter Condition: Good Disposition: HOME, SELF-CARE Additional Instructions: Please apply 1 eyedrops to the right eye every 3 hours up to 6 doses per day. Please follow-up with ophthalmology as we have provided. Call the office on Wednesday and tell them you were seen in the emergency department you were told to see them in their office. Come back immediately with any increased pain, double or blurry vision, facial swelling, or any other acute problems. Referrals: TAI HUBER MD [ACTIVE STAFF] - Follow up as needed
[2020-04-13 19:37] VITALS: BP 120/72
== END 2020-04-13 19:36 | disposition home or self-care (01) ==
LOC: ER 16:04
DX: S05.01XA Injury of conjunctiva and corneal abrasion without foreign body, right eye, initial encounter (principal); H57.11 Ocular pain, right eye; X58.XXXA Exposure to other specified factors, initial encounter; Z23 Encounter for immunization
CPT/HCPCS: 99283; 90471; 90715; J3490 ×2